=== PATIENT | female | born 1945 | race Caucasian/White ===

== ENCOUNTER 2018-04-24 05:49 | Day surgery (SDC) | payer MEDICARE, SELFPAY ==
[2018-04-04 10:08] VITALS: BMI 34.4
[2018-04-24] VITALS (9 sets, daily range): BP systolic 128–189; BP diastolic 58–86; PULSE 62–86; RESP 14–16; TEMP 35.9–36.1; O2SAT 94–100; BMI 36.5
[2018-04-24 07:00] LABS: Hematocrit 45.9 % (37-47); Hemoglobin 14.5 g/dl (12.0-15.0); Mean Corp Hgb Conc 31.6 g/gl (32-36); Mean Corpuscular Hgb 28.8 pg (27.0-32.0); Mean Corpuscular Volume 91.3 fL (81-99); Mean Platelet Vol. 10.3 fl (6.2-12.0); Platelet Count 255 K/mm3 (150-450); RBC Distribution Width CV 14.2 % (11.6-14.6); RBC Distribution Width SD 46.7 fl (35.1-43.9); Red Blood Count 5.03 M/mm3 (4.2-5.4); White Blood Count 7.1 K/mm3 (4.4-11.0)
[2018-04-24 07:03] LABS: Scan Indicated on CBC? Y/N NO
[2018-04-24 07:06] LABS: ALB/GLOB Ratio 0.7 RATIO (0.9-2.4); AST(SGOT) 18 U/L (15-37); Alanine Aminotransfer ALT/SGPT 18 U/L (13-56); Albumin, Serum 3.3 g/dL (3.2-5.0); Alkaline Phosphatase 124 U/L (45-117); Anion Gap 8 (5-15); BUN 28 mg/dL (7-18); BUN/Creat Ratio 23.1 RATIO (10-20); Calcium,Total 9.8 mg/dL (8.5-10.1); Chloride 103 mmol/L (98-107); Creatinine, Serum 1.21 mg/dL (0.55-1.02); EST Glomerular Filtration Rate 46 mL/min (>60); Est Glom Filt Rate - Afr Amer 56 mL/min (>60); Estimated Creatinine Clearance 39.67 ml/min; Globulin 4.5 g/dL (2.2-4.2); Glucose 199 mg/dL (74-106); Potassium 4.3 mmol/L (3.5-5.1); Protein, Total 7.8 g/dL (6.4-8.2); Sodium Level 141 mmol/L (136-145)
[2018-04-24] MEDS: Cefazolin 2 GM in 0.9% Normal Saline 100 ML IV (07:34)
[2018-04-24 07:49] LABS: Hemoglobin A1c 8.6 % (4.2-6.3)
[2018-04-24] MEDS: Bupiv/Epi 0.5% Mpf 30 ML Vial (08:09)
--- NOTE | 2018-04-24 08:10 | EKG12_ITS ---
Test Reason : PRE-OP Blood Pressure : / mmHG Vent. Rate : 068 BPM Atrial Rate : 068 BPM P-R Int : 202 ms QRS Dur : 144 ms QT Int : 436 ms P-R-T Axes : 012 -70 -10 degrees QTc Int : 463 ms Normal sinus rhythm Right bundle branch block Left anterior fascicular block Bifascicular block Abnormal ECG No previous ECGs available Confirmed by JOHN BENITEZ, CRUZ ([id number]), editor producer VIVIAN ABDI ([id number]) on 04/29/2018 11:29:59 AM Referred By: Kashif Mcghee Confirmed By:CRUZ LOPEZ MD
[2018-04-24] MEDS: Bupivacaine Mpf 0.5% 30 ML VIAL (09:13)
--- NOTE | 2018-04-24 09:26 | PCM.DC.ORTHO ---
Discharge Diet: No Restrictions Discharge Activity: - - do not actively elevate or move shoulder. may come out of sling multiple times/day for elbow and hand range of motion. do not carry push or pull with operative extremity May shower in (days): 2 Ice area for (Minutes): 15 Call your doctor if you observe: Fever of 101 or Higher, Inability to urinate, Inability to have a bowel movement, Shortness of breath, Fainting spells, Increased palpitations (irregular heartbeat), Uncontrolled pain Remove Dressing in (days):: 2 - days Additional Instructions: Keep dressing on for 48 hours then may remove and use Band-Aids as needed. Begin cleaning daily 48 hours after surgery do .not submerge in tub or pool Allergies/Adverse Reactions: Allergies No Known Allergies Allergy (Unverified 04/10/18 13:00) Medications to take at Discharge aspirin 325 mg tablet 325 mg PO DAILY 04/04/18 gabapentin 300 mg capsule 300 mg PO TID 04/04/18 saxagliptin 5 mg tablet 5 mg PO DAILY 04/04/18 Naproxen Sodium [Aleve] 220 mg PO PRN PRN 04/10/18 [place]-3 Fatty Acids/Fish Oil [Fish Oil 1,000 mg Capsule] 1 each PO BID 04/10/18 Hydrocodone/Acetaminophen [[place] 5-325 Tablet] 1 - 2 each PO Q4H PRN PRN #60 tablet 04/24/18 The following prescriptions were given: Hydrocodone/Acetaminophen [[place] 5-325 Tablet] 1 - 2 each PO Q4H PRN PRN #60 tablet PRN Reason: Pain Primary Care Physician: Amado Hallman MD [Primary Care Provider] - Test Results: Test results from this visit will be discussed in further detail at your follow-up appointment, if applicable. Please Follow Up With: Kashif Mcghee DO When: 2 wks Proposed Discharge Date: 04/24/18
--- NOTE | 2018-04-24 09:30 | DCINST_ITS ---
Discharge Diet: No Restrictions Discharge Activity: - - do not actively elevate or move shoulder. may come out of sling multiple times/day for elbow and hand range of motion. do not carry push or pull with operative extremity May shower in (days): 2 Ice area for (Minutes): 15 Call your doctor if you observe: Fever of 101 or Higher, Inability to urinate, Inability to have a bowel movement, Shortness of breath, Fainting spells, Increased palpitations (irregular heartbeat), Uncontrolled pain Remove Dressing in (days):: 2 - days Additional Instructions: Keep dressing on for 48 hours then may remove and use Band-Aids as needed. Begin cleaning daily 48 hours after surgery do .not submerge in tub or pool Allergies/Adverse Reactions: Allergies No Known Allergies Allergy (Unverified 04/10/18 13:00) Medications to take at Discharge aspirin 325 mg tablet 325 mg PO DAILY 04/04/18 gabapentin 300 mg capsule 300 mg PO TID 04/04/18 saxagliptin 5 mg tablet 5 mg PO DAILY 04/04/18 Naproxen Sodium [Aleve] 220 mg PO PRN PRN 04/10/18 [place]-3 Fatty Acids/Fish Oil [Fish Oil 1,000 mg Capsule] 1 each PO BID 04/10/18 Hydrocodone/Acetaminophen [[place] 5-325 Tablet] 1 - 2 each PO Q4H PRN PRN #60 tablet 04/24/18 The following prescriptions were given: Hydrocodone/Acetaminophen [[place] 5-325 Tablet] 1 - 2 each PO Q4H PRN PRN #60 tablet PRN Reason: Pain Primary Care Physician: Amado Hallman MD [Primary Care Provider] - Test Results: Test results from this visit will be discussed in further detail at your follow- up appointment, if applicable. Please Follow Up With: Kashif Mcghee DO When: 2 wks Proposed Discharge Date: 04/24/18
--- NOTE | 2018-04-24 09:46 | OP.PCM_ITS ---
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 Risks benefits and alternatives of the procedure were reviewed including risk of bleeding infection nerve artery tissue damage need for further surgery continue pain postoperative stiffness postoperative rehabilitation that is required and expected postoperative course Procedure the patient was met in the preoperative holding area the operative extremity was identified by both patient and physician and was marked. Patient was met by anesthesia and brought back to the operating room on a wheeled cart and transferred the operating table in the supine position. Anesthesia was started she was then positioned in a beachchair configuration all of her bony prominences were well-padded. She was prepped and draped in the usual sterile fashion and a timeout was called to ensure the proper patient procedure and extremity were being contemplated. Anatomic landmarks were palpated and marked with a marking pen and injected with 0.5% Marcaine with epinephrine in the skin only an 11 blade scalpel was used to make a stab incision in the posterior lateral portal followed by the introduction of the arthroscopic trocar into the glenohumeral space with ease inflow and outflow tubes were attached and arthroscopic visualization began care portal was established with an 18-gauge spinal needle and 11 blade scalpel was used to make a stab incision. A 4 oh shaver was inserted into the joint and debridement of degenerative labral tearing in the posterior superior and anterior region was performed biceps was partially torn greater than 50% and a biceps tenotomy was performed with the use of an ArthroCare wand there was noted to be grade 3 cartilage wear of the glenoid as well as of the humeral head and varying areas. The scope was then repositioned into the subacromial space although a massive rotator cuff tear was appreciated lateral portal was established and a cuff grasper was used to visualize mobilization of the rotator cuff. It was felt the cuff was mobile enough to perform a repair the footprint was debrided with a shaver. And a anterior medial anchor was placed and passed through the cuff edges of the tear were cut to allow individual passes of the fiber tape was repeated for the posterior anchor then in standard beat bridge fashion posterior limbs were secured to a posterior lateral anchor in the anterior limbs to anterior lateral anchor an excellent repair there was no significant anterior acromial spurring and intra-articular injection with 0.25% Marcaine plain and 4 mg of morphine was injected the suture portals were closed with 3-0 nylon arthroscopic knots this dressing was applied in the form of Xeroform 4 x 4 ABD and [place] dressing. An abduction sling was placed patient tolerated the procedure well all counts were correct patient was brought back to the PACU in stable condition in a postoperative interscalene block will be placed patient will follow up in 2 weeks a prescription for [place] was called into her pharmacy
[2018-04-24 11:02] LABS: Bedside Glucose 241 mg/dL (70-110)
== END 2018-04-24 14:53 | disposition home or self-care (01) ==
LOC: SDC 05:50 → AC 05:50
PROVIDERS: Anesthesiology; Family Provider Family Medicine; PCP Family Medicine; Referring Provider Orthopaedic Surgery; Visit Provider Orthopaedic Surgery
PROC: (CPT 29827; principal; 2018-04-24 07:10)
DX: M75.121 Complete rotator cuff tear or rupture of right shoulder, not specified as traumatic (principal); Z85.43 Personal history of malignant neoplasm of ovary; E11.9 Type 2 diabetes mellitus without complications; Z79.899 Other long term (current) drug therapy; Z79.82 Long term (current) use of aspirin; I45.2 Bifascicular block; I10 Essential (primary) hypertension
CPT/HCPCS: 01630; 29827; 64415; 36415; 80053; 82962; 83036; 85027; 93005; J7120; J2405

== ENCOUNTER 2024-12-16 15:00 | Outpatient (RCR) | payer MEDICARE, SELFPAY ==
[2024-12-11 13:24] VITALS: BP 149/93; PULSE 78; RESP 16; TEMP 36.4; BMI 38.9
--- NOTE | 2024-12-11 14:41 | PCM.WC.HP ---
History of Present Illness Date of Service: 12/11/24 Chief Complaint: Bilateral lower extremity ulcerations History of Wound: This is an 79-year-old female who presented with an ulceration in both lower extremities. According to the patient, the ulcerations have been present for a couple of months. It appears as though the ulcerations started as blisters, which subsequently ruptured, leaving a full-thickness ulceration at the site. The patient suffers from chronic swelling and edema in her lower extremities. The swelling and edema in her lower extremities occurs late in each day. She denies history of thrombophlebitis. She claims to sleep on a flat mattress or couch at night. She is not active, and requires the use of a cane or walker for ambulation. The amount of sitting during daytime hours is judged to be significant. The patient claims that compression to her lower extremities has been administered recently by means of Cresencio wraps. The patient lives with family members. She claims to prepare her own meals, though admits that her appetite is poor. 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 [facility] Medical History History of ovarian cancer Venous stasis ulcer Venous stasis ulcer Dependent edema Leg edema Symptom of leg swelling Memory disturbance Impaired mobility Peripheral artery disease Diabetic neuropathy Hyperlipidemia associated with type 2 diabetes mellitus Hypertension Diabetes mellitus type 2 with complications, uncontrolled Stroke Diabetes Home Medications ?Medication ?Instructions ?Recorded ?Last Taken ?Type aspirin 325 mg tablet 325 mg PO DAILY 04/04/18 04/16/18 History gabapentin 300 mg capsule 300 mg PO TID 04/04/18 Unknown History saxagliptin 5 mg tablet (Onglyza) 5 mg PO DAILY diabetes 04/04/18 Unknown History naproxen sodium 220 mg capsule 220 mg PO PRN PRN Pain 04/10/18 Unknown History (Aleve) omega-3 fatty acids-fish oil 340 1 ea PO BID 04/10/18 Unknown History mg-1,000 mg capsule (Fish Oil) hydrocodone-acetaminophen 5-325mg 1 - 2 ea (1 - 2 x 5-325 mg) PO Q4H 04/24/18 Unknown Rx 5mg-325mg ([place]) PRN PRN Pain #60 tabs Allergy/AdvReac Type Severity Reaction Status Date / Time No Known Allergies Allergy Verified 06/03/18 11:07 Family History Mother CVA (cerebral vascular accident) Father Heart disease Surgical History History of hysterectomy h/o gallbladder removal History of shoulder surgery Social History Smoking Status: Never smoker Vital Signs Vital Signs Vital Signs: 12/11/24 13:24 Temperature 97.5 F L Temperature Source Temporal Pulse Rate 78 Respiratory Rate 16 Blood Pressure 149/93 H Blood Pressure Mean 111 Blood Pressure Source Monitor Blood Pressure Position Sitting Blood Pressure Location Right Arm Oxygen Delivery Method Room Air Weight Weight: 249 lb Body Mass Index (BMI) 38.9 Physical Exam Const alert, oriented x3, no apparent distress and no limitations Constitutional Narrative: The patient is moderately obese, with a BMI of 39.0. General Appearance: cooperative, comfortable, well kempt and well developed Orientation / Consciousness: awake, oriented to person, oriented to place and oriented to time Exam Limitations: no limitations HEENT normocephalic and head/scalp atraumatic Head and Scalp: normal to inspection, normocephalic and atraumatic Face and Sinus: normal facial exam Nose: external nose normal External Ear: external ears normal Eyes EOMs intact bilaterally General Eye: normal appearance of both eyes Resp normal respiratory effort, normal air movement, no retractions and no use of accessory muscles Effort and Inspection: able to speak in complete sentences Extremity no calf tenderness General Extremity: Negative for clubbing or cyanosis Skin Wound Narrative: Moderate swelling and edema are noted in the patient's lower extremities bilaterally. There is 1 ulceration in each lower extremity. On the right, the ulceration is located on the distal anterolateral calf. The ulceration is full-thickness in nature, extending through all layers of the dermis and into the subcutaneous tissues. There are areas of pink, healthy granulation tissue, but also slough and devitalized tissue. Ulcer margins are well beveled. Dimensions are documented elsewhere. There is mild erythema surrounding the ulceration. On the left, there is an ulceration on the left mid-pretibial surface. This ulceration is smaller than the contralateral ulceration. The ulceration is full-thickness, extending through all layers of the dermis and into the subcutaneous tissues. Slough and devitalized tissue are present on the surface of the ulceration. Dimensions are documented elsewhere. Ulcer margins are well beveled. Erythema surrounds the ulceration. Neuro oriented x3, CN's II-XII intact bilaterally, moves all extremities, no focal motor deficits and no sensory deficits noted Sensorium / Orientation: awake, alert, oriented to person, oriented to place and oriented to time Speech: speech normal Psych Appearance: grossly normal and appropriate Attitude: calm Activity / Motor Behavior: appropriate eye contact Speech: normal speech Mood & Affect: euthymic mood Thought Process: normal thought process Thought Content: normal thought content Attention / Concentration: attention grossly intact Debridement Note Debridement Note Wound debrided: Ulceration of the right, distal anterolateral calf Laterality: Right Type of Debridement: Excisional debridement Anesthesia Used: 5% Lidocaine Gel and Cetacaine Depth: Down to and including healthy tissue and in the subcutaneous layer Percentage of wound debrided: 100 Instrument Used: 5mm curette Tissue Removed: Slough and devitalized tissue Severity: Fat Layer Exposed Amount of bleeding with debridement: Mild Bleeding Controlled with: Compression and gauze Patient tolerated procedure: Patient tolerated procedure well Debridement Free Text: Because of the erythema surrounding the ulceration, a swab culture was obtained for aerobic and anaerobic bacterial culture. Post-Debridement Measurements and Additional Note: Post-Debridement Measurements/Treatment - Nurse 1 - General Ulcer Assessment Start: 12/11/24 13:18 Freq: Status: Active Protocol: TALYA Activity Type Activity Date Activity User E-sign Co-sign Detail Recorded Client Recorded Date Recorded By Document 12/11/24 13:24 [id number] 12/11/24 13:48 12/11/24 13:24 - Today's Visit Information Type of service Initial Visit Arrival Mode Wheelchair Transfer Assistance Manual Patient Identification Verified (Name & Yes ) Height and Weight Height 5 ft 7 in Weight 249 lb Weight in Pounds 249.0 lbs Body Mass Index (BMI) 38.9 BMI Classification Obese Vital Signs Temperature (97.8 F-99.1 F) 97.5 F L Temperature Source Temporal Pulse Rate (60-100) 78 Pulse Location Monitor Respiratory Rate (12-18) 16 Respiratory rate source Observation Oxygen Delivery Method Room Air Blood Pressure (90/60-120/80) 149/93 H Blood Pressure Mean 111 Source Monitor Position Sitting Blood Pressure Location Right Arm History Since Last Visit- (Skip if this is Patient's initial visit) Left Footwear Regular Shoe Pain Scale: 0-10 Numeric Is Patient Pain Free? Yes Lower Extremity Assessment/ Foot Assessment/ Toe Nail Assessment Right -Posterior Tibial Palpable No -Posterior Tibial Doppler Multiphasic -Dorsalis Pedis Palpable No -Dorsalis Pedis Doppler Multiphasic -Hair Growth on Legs Yes -Hair Growth on Toes No -Temperature of Extremity Warm -Capillary Refill Less than 3 Seconds -Dependent Rubor No -Blanched when Elevated No -Other Deformity No -Prior Foot Ulcer No -Charcot Joint No -Prior Amputation No -Thick No -Discolored No -Deformed No -Improper Length & Hygeine No Left -Posterior Tibial Palpable No -Posterior Tibial Doppler Multiphasic -Dorsalis Pedis Palpable No -Dorsalis Pedis Doppler Multiphasic -Hair Growth on Legs Yes -Hair Growth on Toes No -Temperature of Extremity Warm -Dependent Rubor No -Blanched when Elevated No -Other Deformity No -Prior Foot Ulcer No -Charcot Joint No -Prior Amputation No -Thick No -Discolored No -Deformed No -Improper Length & Hygeine No Functional Assessment Recent Decline in Ability to Perform Transferring Assistive Device With Patient Yes List Device(s) with Patient walker, cane and today she had a wheelchair Culture/Taoism/Registered Nurse Cardiovascular [facility] Cultural/Taoism Needs that may affect No Treatment Plan WC - Nurse 1 - General Ulcer Measurement Start: 12/11/24 13:18 Freq: Status: Active Protocol: Activity Type Activity Date Activity User E-sign Co-sign Detail Recorded Client Recorded Date Recorded By Document 12/11/24 13:24 [id number] 12/11/24 13:48 GM 12/11/24 13:24 Wound Center Nurse 1 Left [place] -Current Size (cm) - Length 1.0 -Current Size (cm) - Width 1.0 -Current Size (cm) - Depth 0.1 -Total Square Cm 1.00 -Date of Last Picture (Recall this 12/11/24 field) -Photo Taken Yes -Tunneling No -Undermining/Tunneling No -Circular Undermining No -Exudate Amt Small -Exudate Type Serous -Wound Margin Distinct, Outline Attached -Slough/Fibrin Yes -Texture (Lyric-wound Skin Appearance) Assessed -Color (Lyric-wound Skin Appearance) Assessed -Temperature (Lyric-wound Skin No Abnormality Appearance) (Pt Warm) -Tenderness on Palpation (Lyric-wound Yes Skin Appearance) -Ulcer Cleansing Soap and Water -Foul Odor after Cleansing No -Anesthetic Used 5% Lidocaine Gel Right longoria -Current Size (cm) - Length 1.0 -Current Size (cm) - Width 1.2 -Current Size (cm) - Depth 0.1 -Total Square Cm 1.20 -Date of Last Picture (Recall this 12/11/24 field) -Photo Taken Yes -Tunneling No -Undermining/Tunneling No -Circular Undermining No -Exudate Amt Medium -Exudate Type Serous -Wound Margin Distinct, Outline Attached -Granulation Amt Small (1-33%) -Slough/Fibrin No -Necrosis Amt Small (1-33%) -Necrotic Tissue Type Adherent Slough -Texture (Lyric-wound Skin Appearance) Assessed -Moisture (Lyric-wound Skin Appearance) Assessed -Color (Lyric-wound Skin Appearance) Assessed -Temperature (Lyric-wound Skin No Abnormality Appearance) (Pt Warm) -Tenderness on Palpation (Lyric-wound No Skin Appearance) -Ulcer Cleansing Soap and Water -Foul Odor after Cleansing Yes -Anesthetic Used 5% Lidocaine Gel Lower Limb Edema Present Yes Right Calf (cm) 51 Right Ankle (cm) 30 Left Calf (cm) 50 Left Ankle (cm) 28 - Nurse 2 - General Ulcer CM Notes Start: 12/11/24 13:18 Freq: Status: Active Protocol: Activity Type Activity Date Activity User E-sign Co-sign Detail Recorded Client Recorded Date Recorded By Document 12/11/24 14:00 [id number] 12/11/24 14:16 12/11/24 14:00 Wound Center Nurse 2 Left [place] -Time 14:05 -Correct Patient Yes -Correct Side, Site, Position Yes -Correct Procedure Yes -Procedure Performed Yes -Type of Procedure Debridement -Clinical Debridement Subcutaneous -Tissue Removed Subcutaneous -Post Debridement (cm) - Length 1.0 -Post Debridement (cm) - Width 1.0 -Post Debridement (cm) - Depth 0.1 -Total Square (Post) (cm) 1.00 -Area of Debridement (cm) - Length 1.0 -Area of Debridement (cm) - Width 1.0 -Total Square (Area) (cm) 1.00 -Tunneling No -Undermining/Tunneling No -Circular Undermining No -Wound/Ulcer Outcome Not Healed -Ulcer Cleansing Rinsed/ Irrigated with Saline -Foul Odor after Cleansing No -Bioengineered Tissue No -Bleeding Controlled with Pressure -Treatment Response Procedure Tolerated Well -Offloading No -Debridement - Subq, 1st 20sq cm No Right longoria -Time 14:05 -Correct Patient Yes -Correct Side, Site, Position Yes -Correct Procedure Yes -Procedure Performed Yes -Type of Procedure Debridement -Clinical Debridement Subcutaneous -Tissue Removed Subcutaneous -Post Debridement (cm) - Length 1.2 -Post Debridement (cm) - Width 1.2 -Post Debridement (cm) - Depth 0.1 -Total Square (Post) (cm) 1.44 -Area of Debridement (cm) - Length 1.2 -Area of Debridement (cm) - Width 1.2 -Total Square (Area) (cm) 1.44 -Tunneling No -Undermining/Tunneling No -Circular Undermining No -Wound/Ulcer Outcome Not Healed -Ulcer Cleansing Rinsed/ Irrigated with Saline -Foul Odor after Cleansing No -Bioengineered Tissue No -Bleeding Controlled with Pressure -Treatment Response Procedure Tolerated Well -Offloading No -Debridement - Subq, 1st 20sq cm Yes Pain Scale: 0-10 Numeric Is Patient Pain Free? Yes Additional Wound Wound debrided: Left pretibial ulceration Laterality: Left Type of Debridement: Excisional debridement Anesthesia Used: 5% Lidocaine Gel and Cetacaine Depth: Down to and including healthy tissue and in the subcutaneous layer Percentage of wound debrided: 100 Instrument Used: 5mm curette Tissue Removed: Slough and devitalized tissue Severity: Fat Layer Exposed Amount of bleeding with debridement: Mild Bleeding Controlled with: Compression and gauze Patient tolerated procedure: Patient tolerated procedure well Charges/Coding Multi Select Codes Visit Charges Office Visit/Consults: 99321 OV L4 New 45 min Integumentary Integumentary CPT Codes: 27346 Shima subq tissue 20 sq cm/< Assessment/Plan Assessment/Plan (1) Venous stasis ulcer: CODE(S): I83.009 - Varicose veins of unspecified lower extremity with ulcer of unspecified site; L97.909 - Non-pressure chronic ulcer of unspecified part of unspecified lower leg with unspecified severity QUALIFIERS: Venous stasis ulcer site: other part of lower leg Varicose vein presence: without varicose veins Laterality: right Non-pressure ulcer stage: with fat layer exposed Qualified Code(s): I87.2 - Venous insufficiency (chronic) (peripheral); L97.812 - Non-pressure chronic ulcer of other part of right lower leg with fat layer exposed (2) Venous stasis ulcer: CODE(S): I83.009 - Varicose veins of unspecified lower extremity with ulcer of unspecified site; L97.909 - Non-pressure chronic ulcer of unspecified part of unspecified lower leg with unspecified severity QUALIFIERS: Venous stasis ulcer site: calf Varicose vein presence: without varicose veins Laterality: left Non-pressure ulcer stage: with fat layer exposed Qualified Code(s): I87.2 - Venous insufficiency (chronic) (peripheral); L97.222 - Non-pressure chronic ulcer of left calf with fat layer exposed (3) Leg edema: CODE(S): R60.0 - Localized edema (4) Symptom of leg swelling: CODE(S): M79.89 - Other specified soft tissue disorders (5) Dependent edema: CODE(S): R60.9 - Edema, unspecified (6) Diabetes mellitus type 2 with complications, uncontrolled: (7) Peripheral artery disease: CODE(S): I73.9 - Peripheral vascular disease, unspecified (8) Impaired mobility: CODE(S): Z74.09 - Other reduced mobility (9) Stroke: CODE(S): I63.9 - Cerebral infarction, unspecified (10) h/o gallbladder removal: (11) History of shoulder surgery: CODE(S): Z98.890 - Other specified postprocedural states (12) Hypertension: CODE(S): I10 - Essential (primary) hypertension (13) Hyperlipidemia associated with type 2 diabetes mellitus: CODE(S): E11.69 - Type 2 diabetes mellitus with other specified complication; E78.5 - Hyperlipidemia, unspecified (14) Diabetic neuropathy: CODE(S): E11.40 - Type 2 diabetes mellitus with diabetic neuropathy, unspecified (15) Memory disturbance: CODE(S): R41.3 - Other amnesia (16) History of ovarian cancer: CODE(S): Z85.43 - Personal history of malignant neoplasm of ovary (17) History of hysterectomy: CODE(S): Z90.710 - Acquired absence of both cervix and uterus PLAN: Plan This is an 79-year-old female who presented with an ulceration on each of her lower extremities. The patient suffers from chronic swelling and edema in her lower extremities bilaterally. Within the last several months, she has developed an ulceration in both lower extremities. According to the patient, the ulcerations began as intact blisters, which subsequently ruptured, leaving ulcerations at each site. The patient claims to sleep on a flat mattress or couch at night. It appears as though she spends long hours each day sitting in idle fashion. She is not very active, requiring a cane or walker for ambulation. She denies a history of thrombophlebitis. She also claims that her appetite is poor. The patient is also noted to be diabetic. The patient's diabetes control appears to be poor, and her last known hemoglobin A1c was on May 27, 2024, with a value of 12.3. A lengthy discussion has been undertaken with the patient and her daughter, at the bedside, regarding conservative treatment measures relative to the swelling and edema in the patient's lower extremities. The patient has been encouraged to continue sleeping on a flat surface at night. She has been encouraged to elevate her lower extremities during daytime hours, as much as possible. It has been explained that elevation should be to heart level, or higher. Prolonged idle sitting has been discouraged. Activity has been encouraged, but it is not likely the patient can enhance her level of activity to any significant degree. We are to implement compression to the lower extremities bilaterally by means of Unna compression wraps. These are to remain in place until the patient's visit early next week. We are to obtain a noninvasive lower extremity arterial study to assess the arterial tree in the lower extremities. The Unna compression wrap applied today was placed with conservative amounts of compression. We will also obtain laboratory studies, which will include a CBC, CMP, and a hemoglobin A1c. The patient has been encouraged to optimize her nutritional intake, and to use nutritional supplements, such as Glucerna, to assure adequate nutritional intake. A dietary consult has been offered, but was declined by the patient and her daughter. The patient has also been encouraged to optimize her diabetic control. We will await the results of the patient's ulcer cultures. Patient is return in 5 to 7 days. Total time: 48 minutes
--- NOTE | 2024-12-12 08:52 | WC ---
PHOTO-RIGHT CAMILO 12/11/24
--- NOTE | 2024-12-12 08:58 | WC ---
PHOTO-LEFT CAMILO 12/09/24
[2024-12-16 14:09] VITALS: BP 162/63; PULSE 77; RESP 18; TEMP 36.1; BMI 38.9
--- NOTE | 2024-12-16 15:31 | ART_ITS ---
Reason For Study Reason For Study: PVD Procedure A bilateral lower extremity continuous wave Doppler with analog waveform analysis,segmental pressures,and ankle brachial indexes without exercise. Left Segmental Pressures Left brachial= 188mmHg. Left posterior tibial artery = >254mmHg. Left dorsalis pedis artery = >254mmHg. Left digit = 111 mmHg. The left posterior tibial artery waveforms are biphasic. The left dorsalis pedis waveforms are biphasic. Right Segmental Pressures Right brachial= 172mmHg. Right calf = >254mmHg. Right posterior tibial artery = 148mmHg. Right dorsalis pedis artery = 176mmHg. Right digit = 126 mmHg. The right posterior tibial artery waveforms are biphasic. The right dorsalis pedis waveforms are biphasic. Indices The right ankle brachial index by the posterior tibial artery is 0.79. The right ankle brachial index by the dorsalis pedis is 0.94. The right digital-brachial index is 0.67. The left ankle brachial index by the posterior tibial artery is N/C. The left ankle brachial index by the dorsalis pedis is N/C. The left digital-brachial index is 0.59. VL/Lower Ext Art Exam w/o Exercis Interpretation Summary Biphasic Doppler waveforms are noted at ankle level bilaterally. Pulse-volume r ecordings appear diminished at ankle and digital levels bilaterally. The resting right ankle-brachial index is minimally diminished. The resting left ankle- brachial index could not be determined due to the non-compressibility of the va sculature at ankle level on the left. The digital-brachial indices are mildly diminished bilaterally. There is evidence of arterial calcification at ankle level on the left. There i s minimal arterial occlusive disease at ankle level on the right. Mild arterial occlusive disease is noted at digital l evel bilaterally. Ordering Physician: Luis Enrique Crawford Referring Physician: Jaleesa Ruiz Performed By: Jose G Walter, RVT
[2024-12-16 17:27] LABS: Hematocrit 48.2 % (37-47); Hemoglobin 15.0 g/dL (12.0-15.0); Mean Corp Hgb Conc 31.1 g/dL (32-36); Mean Corpuscular Volume 92.3 fL (81-99); Mean Platelet Vol. 11.0 fl (6.2-12.0); Platelet Count 362 K/mm3 (150-450); RBC Distribution Width CV 14.2 % (11.6-14.6); RBC Distribution Width SD 47.8 fl (35.1-43.9); Red Blood Count 5.22 M/mm3 (4.2-5.4); White Blood Count 8.0 K/mm3 (4.4-11.0)
[2024-12-16 17:55] LABS: AST(SGOT) 27 U/L (<=31); Alanine Aminotransfer ALT/SGPT 11 U/L (<=34); Albumin, Serum 3.8 g/dL (3.4-4.8); Alkaline Phosphatase 126 U/L (35-104); Anion Gap 12 (5-15); BUN 24 mg/dL (4-19); BUN/Creat Ratio 18.0 RATIO (10-20); Calcium,Total 10.1 mg/dL (7.6-11.0); Carbon Dioxide 26.8 mmol/L (21.0-32.0); Chloride 102 mmol/L (98-108); Estimated Creatinine Clearance 43.10 ml/min (50-250); Globulin 3.8 g/dL (2.2-4.2); Glucose 107 mg/dL (70-99); Potassium 3.9 mmol/L (3.3-5.1)
--- NOTE | 2024-12-17 15:04 | WC ---
PHOTO-RLE 12/16/24
--- NOTE | 2024-12-18 14:51 | HP.PCM_ITS ---
History of Present Illness Date of Service: 12/16/24 Chief Complaint: Bilateral lower extremity ulcerations History of Wound: This is an 79-year-old female who presented with an ulceration in both lower extremities. According to the patient, the ulcerations had been present for a couple of months. It appears as though the ulcerations started as blisters, which subsequently ruptured, leaving a full-thickness ulceration at the site. The patient suffers from chronic swelling and edema in her lower extremities. The swelling and edema in her lower extremities occurs late in each day. She denies history of thrombophlebitis. She claims to sleep on a flat mattress or couch at night. She is not active, and requires the use of a cane or walker for ambulation. The amount of sitting during daytime hours is judged to be significant. The patient indicated that compression to her lower extremities had been administered recently by means of Cresencio wraps. The patient lives with family members. She claims to prepare her own meals, though admits that her appetite is poor. 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 [facility] Medical History History of ovarian cancer Venous stasis ulcer Venous stasis ulcer Dependent edema Leg edema Symptom of leg swelling Memory disturbance Impaired mobility Peripheral artery disease Diabetic neuropathy Hyperlipidemia associated with type 2 diabetes mellitus Hypertension Diabetes mellitus type 2 with complications, uncontrolled Stroke Diabetes Home Medications ?Medication ?Instructions ?Recorded ?Last Taken ?Type aspirin 325 mg tablet 325 mg PO DAILY 04/04/18 History gabapentin 300 mg capsule 300 mg PO TID 04/04/18 Unkno wn History saxagliptin 5 mg tablet (Onglyza) 5 mg PO DAILY diabet es 04/04/18 Unknown History naproxen sodium 220 mg capsule 220 mg PO PRN PRN Pain 04/10/18 Unknown History (Aleve) omega-3 fatty acids-fish oil 340 1 ea PO BID 04/10/18 Unknown History mg-1,000 mg capsule (Fish Oil) hydrocodone-acetaminophen 5-325mg 1 - 2 ea (1 - 2 x 5- 325 mg) PO Q4H 04/24/18 Unknown Rx 5mg-325mg (Rudyard) PRN PRN Pain #60 tabs sulfamethoxazole 800 1 tab PO Q12H Wound Infectio n #20 12/15/24 Unknown Rx mg-trimethoprim 160 mg tablet tabs (Bactrim DS) Allergy/AdvReac Type Severity Reaction Status Date / Time No Known Allergies Allergy Verified 06/03/18 11:07 Family History Mother CVA (cerebral vascular accident) Father Heart disease Surgical History History of hysterectomy h/o gallbladder removal History of shoulder surgery Social History Smoking Status: Never smoker Vital Signs Vital Signs Vital Signs: Weight Weight: 249 lb Body Mass Index (BMI) 38.9 Physical Exam Const alert, oriented x3, no apparent distress and no limitations Constitutional Narrative: The patient is moderately obese, with a BMI of 39.0. General Appearance: cooperative, comfortable, well kempt and well developed Orientation / Consciousness: awake, oriented to person, oriented to place and oriented to time Exam Limitations: no limitations HEENT normocephalic and head/scalp atraumatic Head and Scalp: normal to inspection, normocephalic and atraumatic Face and Sinus: normal facial exam Nose: external nose normal External Ear: external ears normal Eyes EOMs intact bilaterally General Eye: normal appearance of both eyes Resp normal respiratory effort, normal air movement, no retractions and no use of accessory muscles Effort and Inspection: able to speak in complete sentences Extremity no calf tenderness General Extremity: Negative for clubbing or cyanosis Skin Wound Narrative: Moderate swelling and edema are noted in the patient's lower extremities bilaterally. There is 1 ulceration in each lower extremity. On the right, the ulceration is located on the distal anterolateral calf. The ulceration is full- thickness in nature, extending through all layers of the dermis and into the subcutaneous tissues. There are areas of pink, healthy granulation tissue, but also slough and devitalized tissue. Ulcer margins are well beveled. Dimensions are documented elsewhere. There is mild erythema surrounding the ulceration. On the left, there is an ulceration on the left mid-pretibial surface. This ulceration is smaller than the contralateral ulceration. The ulceration is full-thickness, extending through all layers of the dermis and into the subcutaneous tissues. Slough and devitalized tissue are present on the surface of the ulceration. Dimensions are documented elsewhere. Ulcer margins are well beveled. Erythema surrounds the ulceration. Neuro oriented x3, CN's II-XII intact bilaterally, moves all extremities, no focal motor deficits and no sensory deficits noted Sensorium / Orientation: awake, alert, oriented to person, oriented to place and oriented to time Speech: speech normal Psych Appearance: grossly normal and appropriate Attitude: calm Activity / Motor Behavior: appropriate eye contact Speech: normal speech Mood & Affect: euthymic mood Attention / Concentration: attention grossly intact Debridement Note Debridement Note Wound debrided: Ulceration of the right, distal anterolateral calf Laterality: Right Type of Debridement: Excisional debridement Anesthesia Used: 5% Lidocaine Gel and Cetacaine Depth: Down to and including healthy tissue and in the subcutaneous layer Percentage of wound debrided: 100 Instrument Used: 5mm curette Tissue Removed: Slough and devitalized tissue Severity: Fat Layer Exposed Amount of bleeding with debridement: Mild Bleeding Controlled with: Compression and gauze Patient tolerated procedure: Patient tolerated procedure well Post-Debridement Measurements and Additional Note: Post-Debridement Measurements/Treatment - Nurse 1 - General Ulcer Assessment Start: 12/11/24 13:18 Freq: Status: Active Protocol: [email or web address] Activity Type Activity Date Activity User E-sign Co-sign Detail Recorded Client Recorded Date Recorded By Document 12/11/24 13:24 [id number] 12/11/24 13:48 Document 12/16/24 14:09 [id number] 12/16/24 14:13 12/11/24 12/16/24 13:24 14:09 - Today's Visit Information Type of service Initial Visit Follow-up Visit (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 ) Arrival Mode Wheelchair Wheelchair Transfer Assistance Manual Manual Patient Identification Verified (Name & Yes Yes ) Patient Requires Transmission-Based No Precautions Height and Weight Height 5 ft 7 in Weight 249 lb Weight in Pounds 249.0 lbs Body Mass Index (BMI) 38.9 38.9 BMI Classification Obese Obese Vital Signs Temperature (97.8 F-99.1 F) 97.5 F L 97 F L Temperature Source Temporal Temporal Pulse Rate (60-100) 78 77 Pulse Location Monitor Monitor Respiratory Rate (12-18) 16 18 Respiratory rate source Observation Observation Oxygen Delivery Method Room Air Blood Pressure (90/60-120/80) 149/93 H 162/63 H Blood Pressure Mean 111 96 Source Monitor Monitor Position Sitting Sitting Blood Pressure Location Right Arm Left Arm History Since Last Visit- (Skip if this is Patient's initial visit) Have you changed medications since your No last visit? Any new allergies or adverse reactions No Had a fall/change in ADL's that may No increase risk of falls Signs or symptoms of abuse and/or No neglect since last visit Have you been in the hospital since your No last visit? Has dressing in place as prescribed Yes Has compression in place as prescribed Yes Has offloadiing in place as prescribed N/A Experienced any changes in pain level or No management Left Footwear Regular Shoe No Footwear Right Footwear No Footwear Pain Scale: 0-10 Numeric Is Patient Pain Free? Yes Yes Lower Extremity Assessment/ Foot Assessment/ Toe Nail Assessment Right -Posterior Tibial Palpable No -Posterior Tibial Doppler Multiphasic -Dorsalis Pedis Palpable No -Dorsalis Pedis Doppler Multiphasic -Hair Growth on Legs Yes -Hair Growth on Toes No -Temperature of Extremity Warm -Capillary Refill Less than 3 Seconds -Dependent Rubor No -Blanched when Elevated No -Other Deformity No -Prior Foot Ulcer No -Charcot Joint No -Prior Amputation No -Thick No -Discolored No -Deformed No -Improper Length & Hygeine No Left -Posterior Tibial Palpable No -Posterior Tibial Doppler Multiphasic -Dorsalis Pedis Palpable No -Dorsalis Pedis Doppler Multiphasic -Hair Growth on Legs Yes -Hair Growth on Toes No -Temperature of Extremity Warm -Dependent Rubor No -Blanched when Elevated No -Other Deformity No -Prior Foot Ulcer No -Charcot Joint No -Prior Amputation No -Thick No -Discolored No -Deformed No -Improper Length & Hygeine No Functional Assessment Recent Decline in Ability to Perform Transferring Assistive Device With Patient Yes List Device(s) with Patient walker, cane and today she had a wheelchair 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 Cultural/Mormonism Needs that may affect No Treatment Plan WC - Nurse 1 - General Ulcer Measurement Start: 12/11/24 13:18 Freq: Status: Active Protocol: Activity Type Activity Date Activity User E-sign Co-sign Detail Recorded Client Recorded Date Recorded By Document 12/11/24 13:24 [id number] 12/11/24 13:48 Document 09/30/25 14:09 RB [id number] 12/16/24 14:13 RB 12/11/24 12/16/24 13:24 14:09 Wound Center Nurse 1 Left [place] -Combined with other wound No -Current Size (cm) - Length 1.0 0.8 -Current Size (cm) - Width 1.0 0.8 -Current Size (cm) - Depth 0.1 0.1 -Total Square Cm 1.00 0.64 -Date of Last Picture (Recall this 12/11/24 field) -Photo Taken Yes Yes -Tunneling No No -Undermining/Tunneling No No -Circular Undermining No No -Exudate Amt Small Medium -Exudate Type Serous Serosanguineous -Wound Margin Distinct, Distinct, Outline Outline Attached Attached -Granulation Amt Medium (34-66%) -Granulation Quality [place] Pocket -Slough/Fibrin Yes Yes -Necrosis Amt Medium (34-66%) -Necrotic Tissue Type Adherent Slough -Structure Exposed N/A -Texture (Lyric-wound Skin Appearance) Assessed Assessed -Moisture (Lyric-wound Skin Appearance) Assessed -Color (Lyric-wound Skin Appearance) Assessed Assessed -Temperature (Lyric-wound Skin No Abnormality No Abnormality Appearance) (Pt Warm) (Pt Warm) -Tenderness on Palpation (Lyric-wound Yes No Skin Appearance) -Ulcer Cleansing Soap and Water Wound Cleanser -Foul Odor after Cleansing No No -Anesthetic Used 5% Lidocaine 5% Lidocaine Gel Gel Right longoria -Combined with other wound No -Current Size (cm) - Length 1.0 1.5 -Current Size (cm) - Width 1.2 1.5 -Current Size (cm) - Depth 0.1 0.1 -Total Square Cm 1.20 2.25 -Date of Last Picture (Recall this 12/11/24 field) -Photo Taken Yes Yes -Tunneling No No -Undermining/Tunneling No No -Circular Undermining No No -Exudate Amt Medium Medium -Exudate Type Serous Serosanguineous -Wound Margin Distinct, Distinct, Outline Outline Attached Attached -Granulation Amt Small (1-33%) Medium (34-66%) -Granulation Quality Pale -Slough/Fibrin No Yes -Necrosis Amt Small (1-33%) Medium (34-66%) -Necrotic Tissue Type Adherent Slough Adherent Slough -Structure Exposed N/A -Texture (Lyric-wound Skin Appearance) Assessed Assessed, Friable -Moisture (Lyric-wound Skin Appearance) Assessed Assessed -Color (Lyric-wound Skin Appearance) Assessed Assessed -Temperature (Lyric-wound Skin No Abnormality No Abnormality Appearance) (Pt Warm) (Pt Warm) -Tenderness on Palpation (Lyric-wound No No Skin Appearance) -Ulcer Cleansing Soap and Water Wound Cleanser -Foul Odor after Cleansing Yes No -Anesthetic Used 5% Lidocaine 5% Lidocaine Gel Gel Lower Limb Edema Present Yes Yes Right Calf (cm) 51 49.4 Right Ankle (cm) 30 28 Left Calf (cm) 50 49.5 Left Ankle (cm) 28 26.5 WC - Nurse 2 - General Ulcer CM Notes Start: 12/11/24 13:18 Freq: Status: Active Protocol: Activity Type Activity Date Activity User E-sign Co-sign Detail Recorded Client Recorded Date Recorded By Document 12/11/24 14:00 GM [id number] 12/11/24 14:16 GM Document 12/16/24 14:52 DS [id number] 12/16/24 14:59 DS Edit Result 12/16/24 14:52 DS (1) [id number] 12/16/24 16:02 DS (1) Left [place] - Post Debridement (cm) - Length => 0.8 - Post Debridement (cm) - Width => 0.8 - Post Debridement (cm) - Depth => 0.1 - Total Square (Post) (cm) => 0.64 - Area of Debridement (cm) - Length => 0.8 - Area of Debridement (cm) - Width => 0.8 - Total Square (Area) (cm) => 0.64 Right longoria - Post Debridement (cm) - Length => 1.5 - Post Debridement (cm) - Width => 1.5 - Post Debridement (cm) - Depth => 0.1 - Total Square (Post) (cm) => 2.25 - Area of Debridement (cm) - Length => 1.5 - Area of Debridement (cm) - Width => 1.5 - Total Square (Area) (cm) => 2.25 12/11/24 12/16/24 14:00 14:52 Wound Center Nurse 2 Left [place] -Time 14:05 14:52 -Correct Patient Yes Yes -Correct Side, Site, Position Yes Yes -Correct Procedure Yes Yes -Procedure Performed Yes Yes -Type of Procedure Debridement Debridement -Clinical Debridement Subcutaneous Subcutaneous -Tissue Removed Subcutaneous Subcutaneous -Post Debridement (cm) - Length 1.0 0.8 -Post Debridement (cm) - Width 1.0 0.8 -Post Debridement (cm) - Depth 0.1 0.1 -Total Square (Post) (cm) 1.00 0.64 -Area of Debridement (cm) - Length 1.0 0.8 -Area of Debridement (cm) - Width 1.0 0.8 -Total Square (Area) (cm) 1.00 0.64 -Tunneling No No -Undermining/Tunneling No No -Circular Undermining No No -Wound/Ulcer Outcome Not Healed Not Healed -Ulcer Cleansing Rinsed/ Irrigated with Saline -Foul Odor after Cleansing No No -Bioengineered Tissue No No -Bleeding Controlled with Pressure Pressure -Treatment Response Procedure Procedure Tolerated Well Tolerated Well -Offloading No -Debridement - Subq, 1st 20sq cm No Yes Right longoria -Time 14:05 14:52 -Correct Patient Yes Yes -Correct Side, Site, Position Yes Yes -Correct Procedure Yes Yes -Procedure Performed Yes Yes -Type of Procedure Debridement Debridement -Clinical Debridement Subcutaneous Subcutaneous -Tissue Removed Subcutaneous Subcutaneous -Post Debridement (cm) - Length 1.2 1.5 -Post Debridement (cm) - Width 1.2 1.5 -Post Debridement (cm) - Depth 0.1 0.1 -Total Square (Post) (cm) 1.44 2.25 -Area of Debridement (cm) - Length 1.2 1.5 -Area of Debridement (cm) - Width 1.2 1.5 -Total Square (Area) (cm) 1.44 2.25 -Tunneling No No -Undermining/Tunneling No No -Circular Undermining No No -Wound/Ulcer Outcome Not Healed Not Healed -Ulcer Cleansing Rinsed/ Irrigated with Saline -Foul Odor after Cleansing No -Bioengineered Tissue No -Bleeding Controlled with Pressure -Treatment Response Procedure Tolerated Well -Offloading No -Debridement - Subq, 1st 20sq cm Yes No Pain Scale: 0-10 Numeric Is Patient Pain Free? Yes Yes WC - Nurse 3 - General Ulcer D/C NN Start: 12/11/24 13:18 Freq: Status: Active Protocol: Activity Type Activity Date Activity User E-sign Co-sign Detail Recorded Client Recorded Date Recorded By Document 12/11/24 14:21 [id number] 12/11/24 14:51 Document 12/16/24 15:05 RB [id number] 12/16/24 15:07 RB 12/11/24 12/16/24 14:21 15:05 Wound Care Center Nurse 3 Left [place] -Ulcer Cleansing Not Cleansed -Foul Odor after Cleansing No -Other Dressing hydrogel -Primary Dressing Covered/Secured with Dry Gauze & Roll Gauze, Other -Other Covering hydrogel -Wound Comment(s) unna boots Right longoria -Ulcer Cleansing Not Cleansed -Foul Odor after Cleansing No -Other Dressing hydrogel -Primary Dressing Covered/Secured with Dry Gauze & Roll Gauze, Secured with Tape -Wound Comment(s) unna boots Treatment Response Procedure Tolerated Well Pain Scale: 0-10 Numeric Is Patient Pain Free? Yes Yes WC - Visit Discharge Discharge Condition Stable Stable Ambulatory Status Wheelchair Wheelchair Transportation Private Auto Private Auto Medication Reconcilliation completed & No provided to patient/care provider Clinical Summary of Care Provided Yes Additional Wound Wound debrided: Left pretibial ulceration Laterality: Left Type of Debridement: Excisional debridement Anesthesia Used: 5% Lidocaine Gel and Cetacaine Depth: Down to and including healthy tissue and in the subcutaneous layer Percentage of wound debrided: 100 Instrument Used: 5mm curette Tissue Removed: Slough and devitalized tissue Severity: Fat Layer Exposed Amount of bleeding with debridement: Mild Bleeding Controlled with: Compression and gauze Patient tolerated procedure: Patient tolerated procedure well Lab / Micro Data Attestation: I reviewed the patient's lab results. Lab results narrative: Laboratory Tests 12/16/24 16:19 WBC 8.0 Hgb 15.0 Hct 48.2 H Plt Count 362 Sodium 140 Potassium 3.9 Chloride 102 Carbon Dioxide 26.8 BUN 24 H Creatinine 1.35 H Glucose 107 H Hemoglobin A1c 9.7 H Calcium 10.1 Total Bilirubin 0.91 AST 27 ALT 11 Alkaline Phosphatase 126 H Total Protein 7.6 Albumin 3.8 12/16/24 16:19 12/16/24 16:19 Charges/Coding Multi Select Codes Visit Charges Office Visit/Consults: 47283 OV L2 Est 10min Integumentary Integumentary CPT Codes: 60077 Shima subq tissue 20 sq cm/< Assessment/Plan Assessment/Plan (1) Venous stasis ulcer: CODE(S): I83.009 - Varicose veins of unspecified lower extremity with ulcer of unspecified site; L97.909 - Non-pressure chronic ulcer of unspecified part of unspecified lower leg with unspecified severity QUALIFIERS: Venous stasis ulcer site: other part of lower leg V aricose vein presence: without varicose veins Laterality: right Non-pressure ulcer stage: with fat layer exposed Qualified Code(s): I87.2 - Venous insufficiency (chronic) (peripheral); L97.812 - Non-pressure chronic ulcer of other part of right lower leg with fat layer exposed (2) Venous stasis ulcer: CODE(S): I83.009 - Varicose veins of unspecified lower extremity with ulcer of unspecified site; L97.909 - Non-pressure chronic ulcer of unspecified part of unspecified lower leg with unspecified severity QUALIFIERS: Venous stasis ulcer site: calf Varicose vein presence: without varicose veins Laterality: left Non-pressure ulcer stage: w ith fat layer exposed Qualified Code(s): I87.2 - Venous insufficiency (chronic) (peripheral); L97.222 - Non-pressure chronic ulcer of left calf with fat layer exposed (3) Leg edema: CODE(S): R60.0 - Localized edema (4) Symptom of leg swelling: CODE(S): M79.89 - Other specified soft tissue disorders (5) Dependent edema: CODE(S): R60.9 - Edema, unspecified (6) Diabetes mellitus type 2 with complications, uncontrolled: (7) Peripheral artery disease: CODE(S): I73.9 - Peripheral vascular disease, unspecified (8) Impaired mobility: CODE(S): Z74.09 - Other reduced mobility (9) Stroke: CODE(S): I63.9 - Cerebral infarction, unspecified (10) h/o gallbladder removal: (11) History of shoulder surgery: CODE(S): Z98.890 - Other specified postprocedural states (12) Hypertension: CODE(S): I10 - Essential (primary) hypertension (13) Hyperlipidemia associated with type 2 diabetes mellitus: CODE(S): E11.69 - Type 2 diabetes mellitus with other specified complication; E78.5 - Hyperlipidemia, unspecified (14) Diabetic neuropathy: CODE(S): E11.40 - Type 2 diabetes mellitus with diabetic neuropathy, unspecified (15) Memory disturbance: CODE(S): R41.3 - Other amnesia (16) History of ovarian cancer: CODE(S): Z85.43 - Personal history of malignant neoplasm of ovary (17) History of hysterectomy: CODE(S): Z90.710 - Acquired absence of both cervix and uterus PLAN: Plan This is an 79-year-old female who presented with an ulceration on each of her lower extremities. The patient suffers from chronic swelling and edema in her lower extremities bilaterally. Within the last several months, she has developed an ulceration in both lower extremities. According to the patient, the ulcerations began as intact blisters, which subsequently ruptured, leaving ulcerations at each site. The patient claims to sleep on a flat mattress or couch at night. It appears as though she spends long hours each day sitting in idle fashion. She is not very active, requiring a cane or walker for ambulation. She denies a history of thrombophlebitis. She also claims that her appetite is poor. The patient is also noted to be diabetic. The patient's diabetes control appears to be poor. A lengthy discussion has been undertaken with the patient and her daughter regarding conservative treatment measures relative to the swelling and edema in the patient's lower extremities. The patient has been encouraged to continue sleeping on a flat surface at night. She has been encouraged to elevate her lower extremities during daytime hours, as much as possible. It has been explained that elevation should be to heart level, or higher. Prolonged idle sitting has been discouraged. Activity has been encouraged, but it is not likely the patient can enhance her level of activity to any significant degree. We are to continue compression to the lower extremities bilaterally by means of Unna compression wraps. These are to be changed twice weekly. A noninvasive lower extremity arterial study has been performed, revealing minimal arterial occlusive disease at ankle level on the right. Mild arterial occlusive disease is noted at digital level bilaterally. Laboratory studies have also been obtained, and results have been reviewed. The patient has been encouraged to optimize her nutritional intake, and to use nutritional supplements, such as Glucerna, to assure adequate nutritional intake. A dietary consult has been offered, but was declined by the patient and her daughter. The patient has also been encouraged to optimize her diabetic control. Wound culture results from December 11, 2024, were positive for Staphylococcus aureus. In accordance with the sensitivity results, the patient has been started on Bactrim double strength twice daily for a total of 10 days. The patient is to return for reevaluation in 1 week. Total time: 26 minutes
== END 2024-12-16 23:59 | disposition home or self-care (01) ==
LOC: WC 15:00
PROVIDERS: PCP Nurse Practitioner Primary Care; Referring Provider Nurse Practitioner Primary Care; Visit Provider Surgery
DX: I83.012 Varicose veins of right lower extremity with ulcer of calf (principal); L97.222 Non-pressure chronic ulcer of left calf with fat layer exposed; L97.212 Non-pressure chronic ulcer of right calf with fat layer exposed; I83.022 Varicose veins of left lower extremity with ulcer of calf; L97.822 Non-pressure chronic ulcer of other part of left lower leg with fat layer exposed; E11.51 Type 2 diabetes mellitus with diabetic peripheral angiopathy without gangrene; E11.40 Type 2 diabetes mellitus with diabetic neuropathy, unspecified; E11.59 Type 2 diabetes mellitus with other circulatory complications; Z79.82 Long term (current) use of aspirin; I10 Essential (primary) hypertension; E78.5 Hyperlipidemia, unspecified; R60.0 Localized edema; I87.2 Venous insufficiency (chronic) (peripheral); Z79.899 Other long term (current) drug therapy
CPT/HCPCS: 11042; 36415; 80053; 83036; 84155; 85027; 87070; 87075; 87077; 87186; 87205; 93923; 99204; G0463

== ENCOUNTER 2025-01-06 14:00 | Outpatient (RCR) | payer MEDICARE, SELFPAY ==
[2024-12-17 14:06] VITALS: BP 144/84; PULSE 76; RESP 18; TEMP 36.6
[2024-12-23 13:39] VITALS: BP 142/70; PULSE 79; RESP 14; TEMP 35.8
--- NOTE | 2024-12-24 13:58 | WC ---
PHOTO-RLE 12/23/24
--- NOTE | 2024-12-24 13:59 | WC ---
PHOTO-LLE 12/23/24
[2024-12-26 12:46] VITALS: BP 140/76; PULSE 79; RESP 18; TEMP 35.8
--- NOTE | 2024-12-26 13:15 | PCM.WC.HP ---
History of Present Illness Date of Service: 12/23/24 Chief Complaint: Bilateral lower extremity ulcerations History of Wound: This is an 79-year-old female who presented with an ulceration in both lower extremities. According to the patient, the ulcerations had been present for a couple of months. It appears as though the ulcerations started as blisters, which subsequently ruptured, leaving a full-thickness ulceration at the site. The patient suffers from chronic swelling and edema in her lower extremities. The swelling and edema in her lower extremities occurs late in each day. She denies a history of thrombophlebitis. She claims to sleep on a flat mattress or couch at night. She is not active, and requires the use of a cane or walker for ambulation. The amount of sitting during daytime hours is judged to be significant. The patient indicated that compression to her lower extremities had been administered recently by means of Cresencio wraps. The patient lives with family members. She claims to prepare her own meals, though admits that her appetite is poor. 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 [facility] Medical History History of ovarian cancer Venous stasis ulcer Venous stasis ulcer Dependent edema Leg edema Symptom of leg swelling Memory disturbance Impaired mobility Peripheral artery disease Diabetic neuropathy Hyperlipidemia associated with type 2 diabetes mellitus Hypertension Diabetes mellitus type 2 with complications, uncontrolled Stroke Diabetes Home Medications ?Medication ?Instructions ?Recorded ?Last Taken ?Type aspirin 325 mg tablet 325 mg PO DAILY 04/04/18 04/16/18 History gabapentin 300 mg capsule 300 mg PO TID 04/04/18 Unknown History saxagliptin 5 mg tablet (Onglyza) 5 mg PO DAILY diabetes 04/04/18 Unknown History naproxen sodium 220 mg capsule 220 mg PO PRN PRN Pain 04/10/18 Unknown History (Aleve) omega-3 fatty acids-fish oil 340 1 ea PO BID 04/10/18 Unknown History mg-1,000 mg capsule (Fish Oil) hydrocodone-acetaminophen 5-325mg 1 - 2 ea (1 - 2 x 5-325 mg) PO Q4H 04/24/18 Unknown Rx 5mg-325mg (Bixby) PRN PRN Pain #60 tabs sulfamethoxazole 800 1 tab PO Q12H Wound Infection #20 12/15/24 Unknown Rx mg-trimethoprim 160 mg tablet tabs (Bactrim DS) Allergy/AdvReac Type Severity Reaction Status Date / Time No Known Allergies Allergy Verified 06/03/18 11:07 Family History Mother CVA (cerebral vascular accident) Father Heart disease Surgical History History of hysterectomy h/o gallbladder removal History of shoulder surgery Social History Smoking Status: Never smoker Vital Signs Vital Signs Vital Signs: 12/26/24 12:46 Temperature 96.4 F L Temperature Source Temporal Pulse Rate 79 Respiratory Rate 18 Blood Pressure 142/70 H Blood Pressure Mean 94 Blood Pressure Source Monitor Blood Pressure Position Semi-Fowlers Blood Pressure Location Left Arm Physical Exam Const alert, oriented x3, no apparent distress and no limitations Constitutional Narrative: The patient is moderately obese, with a BMI of 39.0. General Appearance: cooperative, comfortable, well kempt and well developed Orientation / Consciousness: awake, oriented to person, oriented to place and oriented to time Exam Limitations: no limitations HEENT normocephalic and head/scalp atraumatic Head and Scalp: normal to inspection, normocephalic and atraumatic Face and Sinus: normal facial exam Nose: external nose normal External Ear: external ears normal Eyes EOMs intact bilaterally General Eye: normal appearance of both eyes Resp normal respiratory effort, normal air movement, no retractions and no use of accessory muscles Effort and Inspection: able to speak in complete sentences Extremity no calf tenderness General Extremity: Negative for clubbing or cyanosis Skin Wound Narrative: Moderate swelling and pitting edema are noted in the patient's lower extremities bilaterally. On the right, an ulceration is located on the distal anterolateral calf. The ulceration is full-thickness in nature, extending through all layers of the dermis and into the subcutaneous tissues. There are areas of pink, healthy granulation tissue, but also slough and devitalized tissue. Ulcer margins are well beveled. Dimensions are documented elsewhere. There is mild erythema surrounding the ulceration. On the left, the ulceration previously noted on the left pretibial surface is now healed and epithelialized. Neuro oriented x3, CN's II-XII intact bilaterally, moves all extremities, no focal motor deficits and no sensory deficits noted Sensorium / Orientation: awake, alert, oriented to person, oriented to place and oriented to time Speech: speech normal Psych Appearance: grossly normal and appropriate Attitude: calm Activity / Motor Behavior: appropriate eye contact Speech: normal speech Mood & Affect: euthymic mood Attention / Concentration: attention grossly intact Debridement Note Debridement Note Wound debrided: Ulceration of the right, distal anterolateral calf Laterality: Right Type of Debridement: Excisional debridement Anesthesia Used: 5% Lidocaine Gel Depth: Down to and including healthy tissue and in the subcutaneous layer Percentage of wound debrided: 100 Instrument Used: 5mm curette Tissue Removed: Slough and devitalized tissue Severity: Fat Layer Exposed Amount of bleeding with debridement: Mild Bleeding Controlled with: Compression and gauze Patient tolerated procedure: Patient tolerated procedure well Post-Debridement Measurements and Additional Note: Post-Debridement Measurements/Treatment - Nurse 1 - General Ulcer Assessment Start: 12/17/24 14:05 Freq: Status: Active Protocol: TALYA Activity Type Activity Date Activity User E-sign Co-sign Detail Recorded Client Recorded Date Recorded By Document 12/17/24 14:06 MT [id number] 12/17/24 14:40 MT Document 12/23/24 13:39 ML [id number] 12/23/24 13:43 ML Document 12/26/24 12:46 RB [id number] 12/26/24 12:48 RB 12/17/24 12/23/24 12/26/24 14:06 13:39 12:46 - Today's Visit Information Type of service Nurse-only Follow-up Visit Nurse-only Visit (Physician/SIGNAL MAINTENANCE TECHNICIAN Visit ) Arrival Mode Ambulatory Wheelchair Wheelchair Transfer Assistance None Manual Accompanied by daughter Patient Identification Verified (Name & Yes Yes Yes ) Patient Requires Transmission-Based No No Precautions Safety Precautions Fall Prevention Vital Signs Temperature (97.8 F-99.1 F) 98 F 96.4 F L 96.4 F L Temperature Source Temporal Temporal Temporal Pulse Rate (60-100) 76 79 79 Pulse Location Monitor Monitor Monitor Respiratory Rate (12-18) 18 14 18 Respiratory rate source Observation Observation Observation Oxygen Delivery Method Room Air Blood Pressure (90/60-120/80) 144/84 H 142/70 H 142/70 H Blood Pressure Mean 104 94 94 Source Monitor Monitor Monitor Position Sitting Sitting Semi-Fowlers Blood Pressure Location Right Arm Right Arm Left Arm History Since Last Visit- (Skip if this is Patient's initial visit) Have you changed medications since your No No last visit? Any new allergies or adverse reactions No No Had a fall/change in ADL's that may No No increase risk of falls Signs or symptoms of abuse and/or No No neglect since last visit Have you been in the hospital since your No No last visit? Has dressing in place as prescribed Yes Yes Yes Has compression in place as prescribed Yes N/A Yes Has offloadiing in place as prescribed Yes N/A N/A Experienced any changes in pain level or Yes No No management Left Footwear Regular Shoe Right Footwear Regular Shoe Pain Scale: 0-10 Numeric Is Patient Pain Free? Yes Yes Yes WC - Nurse 1 - General Ulcer Measurement Start: 12/17/24 14:05 Freq: Status: Active Protocol: Activity Type Activity Date Activity User E-sign Co-sign Detail Recorded Client Recorded Date Recorded By Document 12/23/24 13:39 ML [id number] 12/23/24 13:43 ML Document 12/26/24 12:46 RB [id number] 12/26/24 12:48 RB 12/23/24 12/26/24 13:39 12:46 Wound Center Nurse 1 Left Longoria -Current Size (cm) - Length 0.1 -Current Size (cm) - Width 0.1 -Current Size (cm) - Depth 0.1 -Total Square Cm 0.01 -Exudate Amt None Present -Granulation Amt None Present (0 %) -Slough/Fibrin No -Necrosis Amt None Present (0 %) -Texture (Lyric-wound Skin Appearance) Assessed -Moisture (Lyric-wound Skin Appearance) Assessed -Color (Lyric-wound Skin Appearance) Assessed -Temperature (Lyric-wound Skin No Abnormality Appearance) (Pt Warm) -Tenderness on Palpation (Lyric-wound No Skin Appearance) -Ulcer Cleansing Rinsed/ Irrigated with Saline -Foul Odor after Cleansing No -Anesthetic Used 5% Lidocaine Gel Right longoria -Current Size (cm) - Length 0.1 -Current Size (cm) - Width 0.1 -Current Size (cm) - Depth 0.1 -Total Square Cm 0.01 -Slough/Fibrin No -Necrosis Amt None Present (0 %) -Texture (Lyric-wound Skin Appearance) Assessed -Moisture (Lyric-wound Skin Appearance) Assessed -Color (Lyric-wound Skin Appearance) Assessed -Temperature (Lyric-wound Skin No Abnormality Appearance) (Pt Warm) -Tenderness on Palpation (Lyric-wound No Skin Appearance) -Ulcer Cleansing Rinsed/ Irrigated with Saline -Foul Odor after Cleansing No -Anesthetic Used 5% Lidocaine Gel Lower Limb Edema Present Yes Right Calf (cm) 46 48 Right Ankle (cm) 32 28.6 Left Calf (cm) 43 48 Left Ankle (cm) 28 28 - Nurse 2 - General Ulcer CM Notes Start: 12/17/24 14:05 Freq: Status: Active Protocol: Activity Type Activity Date Activity User E-sign Co-sign Detail Recorded Client Recorded Date Recorded By Document 12/23/24 14:01 SOCRATES [id number] 12/23/24 14:04 SOCRATES 12/23/24 14:01 Wound Center Nurse 2 Left Longoria -Correct Patient Yes -Correct Side, Site, Position No -Correct Procedure No -Procedure Performed No -Post Debridement (cm) - Length 0 -Post Debridement (cm) - Width 0 -Post Debridement (cm) - Depth 0 -Total Square (Post) (cm) 0 -Area of Debridement (cm) - Length 0 -Area of Debridement (cm) - Width 0 -Total Square (Area) (cm) 0 -Wound/Ulcer Outcome Healed- Epithelialized Right longoria -Time 14:02 -Correct Patient Yes -Correct Side, Site, Position Yes -Correct Procedure Yes -Procedure Performed Yes -Type of Procedure Debridement -Clinical Debridement Subcutaneous -Tissue Removed Subcutaneous -Post Debridement (cm) - Length 0.8 -Post Debridement (cm) - Width 1.2 -Post Debridement (cm) - Depth 0.1 -Total Square (Post) (cm) 0.96 -Area of Debridement (cm) - Length 0.8 -Area of Debridement (cm) - Width 1.2 -Total Square (Area) (cm) 0.96 -Tunneling No -Undermining/Tunneling No -Circular Undermining No -Wound/Ulcer Outcome Not Healed -Ulcer Cleansing Rinsed/ Irrigated with Saline -Foul Odor after Cleansing No -Bioengineered Tissue No -Bleeding Controlled with Pressure -Treatment Response Procedure Tolerated Well -Offloading No -Debridement - Subq, 1st 20sq cm Yes Pain Scale: 0-10 Numeric Is Patient Pain Free? Yes WC - Nurse 3 - General Ulcer D/C NN Start: 12/17/24 14:05 Freq: Status: Active Protocol: Activity Type Activity Date Activity User E-sign Co-sign Detail Recorded Client Recorded Date Recorded By Document 12/17/24 14:06 MT [id number] 12/17/24 14:40 MT Document 12/26/24 12:46 RB [id number] 12/26/24 12:48 RB 12/17/24 12/26/24 14:06 12:46 Pain Scale: 0-10 Numeric Is Patient Pain Free? Yes Yes Wound Care Center Nurse 3 Left Longoria -Ulcer Cleansing Soap and Water -Foul Odor after Cleansing No -Negative Pressure Wound Therapy N/A -Primary Dressing Covered/Secured with Dry Gauze,Dry Gauze & Roll Gauze -Other Covering hydrogel Right longoria -Ulcer Cleansing Soap and Water Rinsed/ Irrigated with Saline -Foul Odor after Cleansing No -Negative Pressure Wound Therapy N/A -Primary Dressing Applied Aquacel AG 2x2 -Other Dressing hydrogel -Primary Dressing Covered/Secured with Dry Gauze,Dry Gauze & Roll Gauze -Aquacel AG 2x2 1 BLE -Multi-Layered Wrap Application Unna Boot - Multi-Layer Bilateral Comp - Bilat ($ ) -Unna- Bilat (Qty applied) 1 -Multi-Layer Compression Bilat (Qty 1 applied) Treatment Response Procedure Procedure Tolerated Well Tolerated Well WC - Visit Discharge Discharge Condition Stable Ambulatory Status Ambulatory Wheelchair Transportation Private Auto Private Auto Accompanied by DAUGHTER Medication Reconcilliation completed & No No provided to patient/care provider Clinical Summary of Care Provided Yes Yes Notes: pt understood wound dressing Charges/Coding Procedures Integumentary [id number]: [id number] Shima subq tissue 20 sq cm/< Assessment/Plan Assessment/Plan (1) Venous stasis ulcer: CODE(S): I83.009 - Varicose veins of unspecified lower extremity with ulcer of unspecified site; L97.909 - Non-pressure chronic ulcer of unspecified part of unspecified lower leg with unspecified severity QUALIFIERS: Venous stasis ulcer site: other part of lower leg Varicose vein presence: without varicose veins Laterality: right Non-pressure ulcer stage: with fat layer exposed Qualified Code(s): I87.2 - Venous insufficiency (chronic) (peripheral); L97.812 - Non-pressure chronic ulcer of other part of right lower leg with fat layer exposed (2) Venous stasis ulcer: CODE(S): I83.009 - Varicose veins of unspecified lower extremity with ulcer of unspecified site; L97.909 - Non-pressure chronic ulcer of unspecified part of unspecified lower leg with unspecified severity QUALIFIERS: Venous stasis ulcer site: calf Varicose vein presence: without varicose veins Laterality: left Non-pressure ulcer stage: with fat layer exposed Qualified Code(s): I87.2 - Venous insufficiency (chronic) (peripheral); L97.222 - Non-pressure chronic ulcer of left calf with fat layer exposed (3) Leg edema: CODE(S): R60.0 - Localized edema (4) Symptom of leg swelling: CODE(S): M79.89 - Other specified soft tissue disorders (5) Dependent edema: CODE(S): R60.9 - Edema, unspecified (6) Diabetes mellitus type 2 with complications, uncontrolled: (7) Peripheral artery disease: CODE(S): I73.9 - Peripheral vascular disease, unspecified (8) Impaired mobility: CODE(S): Z74.09 - Other reduced mobility (9) Stroke: CODE(S): I63.9 - Cerebral infarction, unspecified (10) h/o gallbladder removal: (11) History of shoulder surgery: CODE(S): Z98.890 - Other specified postprocedural states (12) Hypertension: CODE(S): I10 - Essential (primary) hypertension (13) Hyperlipidemia associated with type 2 diabetes mellitus: CODE(S): E11.69 - Type 2 diabetes mellitus with other specified complication; E78.5 - Hyperlipidemia, unspecified (14) Diabetic neuropathy: CODE(S): E11.40 - Type 2 diabetes mellitus with diabetic neuropathy, unspecified (15) Memory disturbance: CODE(S): R41.3 - Other amnesia (16) History of ovarian cancer: CODE(S): Z85.43 - Personal history of malignant neoplasm of ovary (17) History of hysterectomy: CODE(S): Z90.710 - Acquired absence of both cervix and uterus PLAN: Plan This is an 79-year-old female who presented with an ulceration on each of her lower extremities. The patient suffers from chronic swelling and edema in her lower extremities bilaterally. Within the last several months, she has developed an ulceration in both lower extremities. According to the patient, the ulcerations began as intact blisters, which subsequently ruptured, leaving ulcerations at each site. The patient claims to sleep on a flat mattress or couch at night. It appears as though she spends long hours each day sitting in idle fashion. She is not very active, requiring a cane or walker for ambulation. She denies a history of thrombophlebitis. She also claims that her appetite is poor. The patient is also noted to be diabetic. The patient's diabetes control appears to be poor. A lengthy discussion has been undertaken with the patient and her daughter regarding conservative treatment measures relative to the swelling and edema in the patient's lower extremities. The patient has been encouraged to continue sleeping on a flat surface at night. She has been encouraged to elevate her lower extremities during daytime hours, as much as possible. It has been explained that elevation should be to heart level, or higher. Prolonged idle sitting has been discouraged. Activity has been encouraged, but it is not likely the patient can enhance her level of activity to any significant degree. We are to implement the use of moistened Aquacel Ag topically to the ulceration of the right lower extremity. For compression, a 3M 2 layer compression wrap is to be applied bilaterally, in anticipation that this will be changed twice weekly. A noninvasive lower extremity arterial study has been performed, revealing minimal arterial occlusive disease at ankle level on the right. Mild arterial occlusive disease is noted at digital level bilaterally. Laboratory studies have also been obtained, and results have been reviewed. The patient has been encouraged to optimize her nutritional intake, and to use nutritional supplements, such as Glucerna, to assure adequate nutritional intake. A dietary consult has been offered, but was declined by the patient and her daughter. The patient has also been encouraged to optimize her diabetic control. Wound culture results from December 11, 2024, were positive for Staphylococcus aureus. In accordance with the sensitivity results, the patient was prescribed Bactrim double strength twice daily for a total of 10 days. The patient's lower extremity circumference measurements are to be forwarded to her DME provider in an attempt to procure CircAid Velcro compression garments for the lower extremities for use on a long-term basis. The patient is to return for reevaluation in 1 week. Total time: 25 minutes
[2024-12-30 13:09] VITALS: BP 150/89; PULSE 71; RESP 16; TEMP 35.7
--- NOTE | 2025-01-01 15:11 | PCM.WC.HP ---
History of Present Illness Date of Service: 12/30/24 Chief Complaint: Bilateral lower extremity ulcerations History of Wound: This is an 79-year-old female who presented with an ulceration in both lower extremities. According to the patient, the ulcerations had been present for a couple of months. It appears as though the ulcerations started as blisters, which subsequently ruptured, leaving a full-thickness ulceration at the site. The patient suffers from chronic swelling and edema in her lower extremities. The swelling and edema in her lower extremities occurs late in each day. She denies a history of thrombophlebitis. She claims to sleep on a flat mattress or couch at night. She is not active, and requires the use of a cane or walker for ambulation. The amount of sitting during daytime hours is judged to be significant. The patient indicated that compression to her lower extremities had been administered recently by means of Cresencio wraps. The patient lives with family members. She claims to prepare her own meals, though admits that her appetite is poor. 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 [facility]LY [facility] Medical History History of ovarian cancer Venous stasis ulcer Venous stasis ulcer Dependent edema Leg edema Symptom of leg swelling Memory disturbance Impaired mobility Peripheral artery disease Diabetic neuropathy Hyperlipidemia associated with type 2 diabetes mellitus Hypertension Diabetes mellitus type 2 with complications, uncontrolled Stroke Diabetes Home Medications ?Medication ?Instructions ?Recorded ?Last Taken ?Type aspirin 325 mg tablet 325 mg PO DAILY 04/04/18 04/16/18 History gabapentin 300 mg capsule 300 mg PO TID 04/04/18 Unknown History saxagliptin 5 mg tablet (Onglyza) 5 mg PO DAILY diabetes 04/04/18 Unknown History naproxen sodium 220 mg capsule 220 mg PO PRN PRN Pain 04/10/18 Unknown History (Aleve) omega-3 fatty acids-fish oil 340 1 ea PO BID 04/10/18 Unknown History mg-1,000 mg capsule (Fish Oil) hydrocodone-acetaminophen 5-325mg 1 - 2 ea (1 - 2 x 5-325 mg) PO Q4H 04/24/18 Unknown Rx 5mg-325mg ([facility]) PRN PRN Pain #60 tabs sulfamethoxazole 800 1 tab PO Q12H Wound Infection #20 12/15/24 Unknown Rx mg-trimethoprim 160 mg tablet tabs (Bactrim DS) Allergy/AdvReac Type Severity Reaction Status Date / Time No Known Allergies Allergy Verified 06/03/18 11:07 Family History Mother CVA (cerebral vascular accident) Father Heart disease Surgical History History of hysterectomy h/o gallbladder removal History of shoulder surgery Social History Smoking Status: Never smoker Physical Exam Const alert, oriented x3, no apparent distress and no limitations Constitutional Narrative: The patient is moderately obese, with a BMI of 39.0. General Appearance: cooperative, comfortable, well kempt and well developed Orientation / Consciousness: awake, oriented to person, oriented to place and oriented to time Exam Limitations: no limitations HEENT normocephalic and head/scalp atraumatic Head and Scalp: normal to inspection, normocephalic and atraumatic Face and Sinus: normal facial exam Nose: external nose normal External Ear: external ears normal Eyes EOMs intact bilaterally General Eye: normal appearance of both eyes Resp normal respiratory effort, normal air movement, no retractions and no use of accessory muscles Effort and Inspection: able to speak in complete sentences Extremity no calf tenderness General Extremity: Negative for clubbing or cyanosis Skin Wound Narrative: Moderate swelling and pitting edema are noted in the patient's lower extremities bilaterally. On the right, an ulceration is located on the distal anterolateral calf. The ulceration is full-thickness in nature, extending through all layers of the dermis and into the subcutaneous tissues. It is generally pink and healthy in appearance, with active granulation tissue. There is a small amount of bioburden. Ulcer margins are well beveled. Dimensions are documented elsewhere. The ulceration has decreased in size. On the left, the ulceration previously noted on the left pretibial surface remains healed and epithelialized. 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 Neuro oriented x3, CN's II-XII intact bilaterally, moves all extremities, no focal motor deficits and no sensory deficits noted Sensorium / Orientation: awake, alert, oriented to person, oriented to place and oriented to time Speech: speech normal Psych Appearance: grossly normal and appropriate Attitude: calm Activity / Motor Behavior: appropriate eye contact Speech: normal speech Mood & Affect: euthymic mood Attention / Concentration: attention grossly intact Debridement Note Debridement Note Wound debrided: Ulceration of the right, distal anterolateral calf Laterality: Right Type of Debridement: Excisional debridement Anesthesia Used: 5% Lidocaine Gel Depth: Down to and including healthy tissue and in the subcutaneous layer Percentage of wound debrided: 100 Instrument Used: 3mm curette Tissue Removed: Bioburden Severity: Fat Layer Exposed Amount of bleeding with debridement: Mild Bleeding Controlled with: Compression and gauze Patient tolerated procedure: Patient tolerated procedure well Post-Debridement Measurements and Additional Note: Post-Debridement Measurements/Treatment - Nurse 1 - General Ulcer Assessment Start: 12/17/24 14:05 Freq: Status: Active Protocol: TALYA Activity Type Activity Date Activity User E-sign Co-sign Detail Recorded Client Recorded Date Recorded By Document 12/17/24 14:06 MT [id number] 12/17/24 14:40 MT Document 12/23/24 13:39 ML [id number] 12/23/24 13:43 ML Document 12/26/24 12:46 RB [id number] 12/26/24 12:48 RB Edit Result 12/26/24 12:46 RB (1) [id number] 12/26/24 13:19 RB Document 12/30/24 13:09 JF [id number] 12/30/24 13:20 JF (1) Blood Pressure (90/60-120/80) 142/70 H => 140/76 H Blood Pressure Mean 94 => 97 12/17/24 12/23/24 12/26/24 14:06 13:39 12:46 [facility] Today's Visit Information Type of service Nurse-only Follow-up Visit Nurse-only Visit (Physician/SALES PROCESS MANAGER Visit ) Arrival Mode Ambulatory Wheelchair Wheelchair Transfer Assistance None Manual Accompanied by daughter Patient Identification Verified (Name & Yes Yes Yes ) Patient Requires Transmission-Based No No Precautions Safety Precautions Fall Prevention Vital Signs Temperature (97.8 F-99.1 F) 98 F 96.4 F L 96.4 F L Temperature Source Temporal Temporal Temporal Pulse Rate (60-100) 76 79 79 Pulse Location Monitor Monitor Monitor Respiratory Rate (12-18) 18 14 18 Respiratory rate source Observation Observation Observation Oxygen Delivery Method Room Air Blood Pressure (90/60-120/80) 144/84 H 142/70 H 140/76 H Blood Pressure Mean 104 94 97 Source Monitor Monitor Monitor Position Sitting Sitting Semi-Fowlers Blood Pressure Location Right Arm Right Arm Left Arm History Since Last Visit- (Skip if this is Patient's initial visit) Have you changed medications since your No No last visit? Any new allergies or adverse reactions No No Had a fall/change in ADL's that may No No increase risk of falls Signs or symptoms of abuse and/or No No neglect since last visit Have you been in the hospital since your No No last visit? Has dressing in place as prescribed Yes Yes Yes Has compression in place as prescribed Yes N/A Yes Has offloadiing in place as prescribed Yes N/A N/A Experienced any changes in pain level or Yes No No management Left Footwear Regular Shoe Right Footwear Regular Shoe Pain Scale: 0-10 Numeric Is Patient Pain Free? Yes Yes Yes 12/30/24 13:09 WC - Today's Visit Information Type of service Follow-up Visit (Physician/SALES PROCESS MANAGER ) Arrival Mode Ambulatory, Wheelchair Transfer Assistance Accompanied by Patient Identification Verified (Name & Yes ) Patient Requires Transmission-Based No Precautions Safety Precautions Vital Signs Temperature (97.8 F-99.1 F) 96.3 F L Temperature Source Temporal Pulse Rate (60-100) 71 Pulse Location Monitor Respiratory Rate (12-18) 16 Respiratory rate source Observation Oxygen Delivery Method Blood Pressure (90/60-120/80) 150/89 H Blood Pressure Mean 109 Source Monitor Position Sitting Blood Pressure Location Right Arm History Since Last Visit- (Skip if this is Patient's initial visit) Have you changed medications since your Yes last visit? Any new allergies or adverse reactions No Had a fall/change in ADL's that may No increase risk of falls Signs or symptoms of abuse and/or No neglect since last visit Have you been in the hospital since your No last visit? Has dressing in place as prescribed Yes Has compression in place as prescribed Yes Has offloadiing in place as prescribed N/A Experienced any changes in pain level or No management Left Footwear Regular Shoe Right Footwear Regular Shoe Pain Scale: 0-10 Numeric Is Patient Pain Free? Yes - Nurse 1 - General Ulcer Measurement Start: 12/17/24 14:05 Freq: Status: Active Protocol: Activity Type Activity Date Activity User E-sign Co-sign Detail Recorded Client Recorded Date Recorded By Document 12/23/24 13:39 ML [id number] 12/23/24 13:43 ML Document 12/26/24 12:46 RB [id number] 12/26/24 12:48 RB Document 12/30/24 13:09 JF [id number] 12/30/24 13:20 JF 12/23/24 12/26/24 12/30/24 13:39 12:46 13:09 Wound Center Nurse 1 Left [place] -Current Size (cm) - Length 0.1 -Current Size (cm) - Width 0.1 -Current Size (cm) - Depth 0.1 -Total Square Cm 0.01 -Exudate Amt None Present -Granulation Amt None Present (0 %) -Slough/Fibrin No -Necrosis Amt None Present (0 %) -Texture (Lyric-wound Skin Appearance) Assessed -Moisture (Lyric-wound Skin Appearance) Assessed -Color (Lyric-wound Skin Appearance) Assessed -Temperature (Lyric-wound Skin No Abnormality Appearance) (Pt Warm) -Tenderness on Palpation (Lyric-wound No Skin Appearance) -Ulcer Cleansing Rinsed/ Irrigated with Saline -Foul Odor after Cleansing No -Anesthetic Used 5% Lidocaine Gel Right longoria -Combined with other wound No -Current Size (cm) - Length 0.1 0.1 -Current Size (cm) - Width 0.1 0.1 -Current Size (cm) - Depth 0.1 0.1 -Total Square Cm 0.01 0.01 -Photo Taken Yes -Epithelialization Large 67-100% -Tunneling No -Undermining/Tunneling No -Circular Undermining No -Exudate Amt None Present -Wound Margin Flat & Intact -Granulation Amt None Present (0 %) -Slough/Fibrin No No -Necrosis Amt None Present (0 %) -Structure Exposed N/A -Texture (Lyric-wound Skin Appearance) Assessed Localized Edema -Moisture (Lyric-wound Skin Appearance) Assessed Assessed,Dry/ Scaly -Color (Lyric-wound Skin Appearance) Assessed Assessed -Temperature (Lyric-wound Skin No Abnormality No Abnormality Appearance) (Pt Warm) (Pt Warm) -Tenderness on Palpation (Lyric-wound No No Skin Appearance) -Ulcer Cleansing Rinsed/ Soap and Water Irrigated with Saline -Foul Odor after Cleansing No No -Anesthetic Used 5% Lidocaine 5% Lidocaine Gel Gel Lower Limb Edema Present Yes Yes Right Calf (cm) 46 48 47.5 Right Ankle (cm) 32 28.6 29 Left Calf (cm) 43 48 48.2 Left Ankle (cm) 28 28 28.6 - Nurse 2 - General Ulcer CM Notes Start: 12/17/24 14:05 Freq: Status: Active Protocol: Activity Type Activity Date Activity User E-sign Co-sign Detail Recorded Client Recorded Date Recorded By Document 12/23/24 14:01 JF [id number] 12/23/24 14:04 JF Document 12/30/24 13:36 DS [id number] 12/30/24 13:38 DS 12/23/24 12/30/24 14:01 13:36 Wound Center Nurse 2 Left Long[place] -Correct Patient Yes -Correct Side, Site, Position No -Correct Procedure No -Procedure Performed No -Post Debridement (cm) - Length 0 -Post Debridement (cm) - Width 0 -Post Debridement (cm) - Depth 0 -Total Square (Post) (cm) 0 -Area of Debridement (cm) - Length 0 -Area of Debridement (cm) - Width 0 -Total Square (Area) (cm) 0 -Wound/Ulcer Outcome Healed- Epithelialized Right longoria -Time 14:02 13:36 -Correct Patient Yes Yes -Correct Side, Site, Position Yes Yes -Correct Procedure Yes Yes -Procedure Performed Yes Yes -Type of Procedure Debridement Debridement -Clinical Debridement Subcutaneous Subcutaneous -Tissue Removed Subcutaneous Subcutaneous -Post Debridement (cm) - Length 0.8 0.5 -Post Debridement (cm) - Width 1.2 0.5 -Post Debridement (cm) - Depth 0.1 0.1 -Total Square (Post) (cm) 0.96 0.25 -Area of Debridement (cm) - Length 0.8 0.5 -Area of Debridement (cm) - Width 1.2 0.5 -Total Square (Area) (cm) 0.96 0.25 -Tunneling No No -Undermining/Tunneling No No -Circular Undermining No No -Wound/Ulcer Outcome Not Healed Not Healed -Ulcer Cleansing Rinsed/ gauze Irrigated with Saline -Foul Odor after Cleansing No No -Bioengineered Tissue No No -Bleeding Controlled with Pressure Pressure -Treatment Response Procedure Procedure Tolerated Well Tolerated Well -Offloading No -Debridement - Subq, 1st 20sq cm Yes Yes Pain Scale: 0-10 Numeric Is Patient Pain Free? Yes Yes WC - Nurse 3 - General Ulcer D/C NN Start: 12/17/24 14:05 Freq: Status: Active Protocol: Activity Type Activity Date Activity User E-sign Co-sign Detail Recorded Client Recorded Date Recorded By Document 12/17/24 14:06 MT [id number] 12/17/24 14:40 MT Document 12/26/24 12:46 RB [id number] 12/26/24 12:48 RB Document 12/30/24 14:24 JF [id number] 12/30/24 14:25 JF 12/17/24 12/26/24 12/30/24 14:06 12:46 14:24 Pain Scale: 0-10 Numeric Is Patient Pain Free? Yes Yes Yes Wound Care Center Nurse 3 Left [place] -Ulcer Cleansing Soap and Water -Foul Odor after Cleansing No -Negative Pressure Wound Therapy N/A -Primary Dressing Covered/Secured with Dry Gauze,Dry Gauze & Roll Gauze -Other Covering hydrogel Right longoria -Ulcer Cleansing Soap and Water Rinsed/ Rinsed/ Irrigated with Irrigated with Saline Saline -Foul Odor after Cleansing No No -Negative Pressure Wound Therapy N/A -Primary Dressing Applied Aquacel AG 2x2 Aquacel AG 4x4, C Hydrogel -Other Dressing hydrogel -Primary Dressing Covered/Secured with Dry Gauze,Dry Dry Gauze Gauze & Roll Gauze -Aquacel AG 2x2 1 -Aquacel AG 4x4 1 -Hydrogel 0 BLE -Lotion applied to leg before Yes compression wrap -Multi-Layered Wrap Application Unna Boot - Multi-Layer Multi-Layer Bilateral Comp - Bilat ($ Comp - Bilat ($ ) ) -Unna- Bilat (Qty applied) 1 -Multi-Layer Compression Bilat (Qty 1 2 applied) Treatment Response Procedure Procedure Tolerated Well Tolerated Well WC - Visit Discharge Discharge Condition Stable Stable Ambulatory Status Ambulatory Wheelchair Ambulatory, Wheelchair Transportation Private Auto Private Auto Private Auto Accompanied by DAUGHTER daughter Medication Reconcilliation completed & No No Yes provided to patient/care provider Clinical Summary of Care Provided Yes Yes Yes Notes: pt understood wound dressing Charges/Coding Procedures Integumentary [id number]: [id number] Shima subq tissue 20 sq cm/< Assessment/Plan Assessment/Plan (1) Venous stasis ulcer: CODE(S): I83.009 - Varicose veins of unspecified lower extremity with ulcer of unspecified site; L97.909 - Non-pressure chronic ulcer of unspecified part of unspecified lower leg with unspecified severity QUALIFIERS: Venous stasis ulcer site: other part of lower leg Varicose vein presence: without varicose veins Laterality: right Non-pressure ulcer stage: with fat layer exposed Qualified Code(s): I87.2 - Venous insufficiency (chronic) (peripheral); L97.812 - Non-pressure chronic ulcer of other part of right lower leg with fat layer exposed (2) Venous stasis ulcer: CODE(S): I83.009 - Varicose veins of unspecified lower extremity with ulcer of unspecified site; L97.909 - Non-pressure chronic ulcer of unspecified part of unspecified lower leg with unspecified severity QUALIFIERS: Venous stasis ulcer site: calf Varicose vein presence: without varicose veins Laterality: left Non-pressure ulcer stage: with fat layer exposed Qualified Code(s): I87.2 - Venous insufficiency (chronic) (peripheral); L97.222 - Non-pressure chronic ulcer of left calf with fat layer exposed (3) Leg edema: CODE(S): R60.0 - Localized edema (4) Symptom of leg swelling: CODE(S): M79.89 - Other specified soft tissue disorders (5) Dependent edema: CODE(S): R60.9 - Edema, unspecified (6) Diabetes mellitus type 2 with complications, uncontrolled: (7) Peripheral artery disease: CODE(S): I73.9 - Peripheral vascular disease, unspecified (8) Impaired mobility: CODE(S): Z74.09 - Other reduced mobility (9) Stroke: CODE(S): I63.9 - Cerebral infarction, unspecified (10) h/o gallbladder removal: (11) History of shoulder surgery: CODE(S): Z98.890 - Other specified postprocedural states (12) Hypertension: CODE(S): I10 - Essential (primary) hypertension (13) Hyperlipidemia associated with type 2 diabetes mellitus: CODE(S): E11.69 - Type 2 diabetes mellitus with other specified complication; E78.5 - Hyperlipidemia, unspecified (14) Diabetic neuropathy: CODE(S): E11.40 - Type 2 diabetes mellitus with diabetic neuropathy, unspecified (15) Memory disturbance: CODE(S): R41.3 - Other amnesia (16) History of ovarian cancer: CODE(S): Z85.43 - Personal history of malignant neoplasm of ovary (17) History of hysterectomy: CODE(S): Z90.710 - Acquired absence of both cervix and uterus PLAN: Plan This is an 79-year-old female who presented with an ulceration on each of her lower extremities. The patient suffers from chronic swelling and edema in her lower extremities bilaterally. Within the last several months, she has developed an ulceration in both lower extremities. According to the patient, the ulcerations began as intact blisters, which subsequently ruptured, leaving ulcerations at each site. The patient claims to sleep on a flat mattress or couch at night. It appears as though she spends long hours each day sitting in idle fashion. She is not very active, requiring a cane or walker for ambulation. She denies a history of thrombophlebitis. She also claims that her appetite is poor. The patient is also noted to be diabetic. The patient's diabetes control appears to be poor. A lengthy discussion has been undertaken with the patient and her daughter regarding conservative treatment measures relative to the swelling and edema in the patient's lower extremities. The patient has been encouraged to continue sleeping on a flat surface at night. She has been encouraged to elevate her lower extremities during daytime hours, as much as possible. It has been explained that elevation should be to heart level, or higher. Prolonged idle sitting has been discouraged. Activity has been encouraged, but it is not likely the patient can enhance her level of activity to any significant degree. We are to continue the use of moistened Aquacel Ag topically to the ulceration of the right lower extremity, as well as collagen hydrogel. For compression, a 3M 2 layer compression wrap is to be applied bilaterally, in anticipation that this will be changed twice weekly. A noninvasive lower extremity arterial study has been performed, revealing minimal arterial occlusive disease at ankle level on the right. Mild arterial occlusive disease is noted at digital level bilaterally. Laboratory studies have also been obtained, and results have been reviewed. The patient has been encouraged to optimize her nutritional intake, and to use nutritional supplements, such as Glucerna, to assure adequate nutritional intake. A dietary consult has been offered, but was declined by the patient and her daughter. The patient has also been encouraged to optimize her diabetic control. Wound culture results from December 11, 2024, were positive for Staphylococcus aureus. In accordance with the sensitivity results, the patient was prescribed Bactrim double strength twice daily for a total of 10 days, which was completed. The patient's lower extremity circumference measurements have been forwarded to her DME provider, and CircAid Velcro compression garments have been received by the patient. She has been advised to bring these garments with her to her next appointment so that the donning technique can be demonstrated. The patient is to return for reevaluation in 1 week. Total time: 25 minutes
[2025-01-02 12:55] VITALS: BP 119/62; PULSE 71; RESP 15; TEMP 36.2
[2025-01-06 14:14] VITALS: BP 190/92; PULSE 75; RESP 18; TEMP 36.2
--- NOTE | 2025-01-07 09:05 | WC ---
PHOTO-RIGHT CAMILO 01/06/25
--- NOTE | 2025-01-08 14:20 | HP.PCM_ITS ---
History of Present Illness Date of Service: 01/06/25 Chief Complaint: Bilateral lower extremity ulcerations History of Wound: This is an 79-year-old female who presented with an ulceration in both lower extremities. According to the patient, the ulcerations had been present for a couple of months. It appears as though the ulcerations started as blisters, which subsequently ruptured, leaving a full-thickness ulceration at the site. The patient suffers from chronic swelling and edema in her lower extremities. The swelling and edema in her lower extremities occurs late in each day. She denies a history of thrombophlebitis. She claims to sleep on a flat mattress or couch at night. She is not active, and requires the use of a cane or walker for ambulation. The amount of sitting during daytime hours is judged to be significant. The patient indicated that compression to her lower extremities had been administered recently by means of Cresencio wraps. The patient lives with family members. She claims to prepare her own meals, though admits that her appetite is poor. 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 [facility] Medical History History of ovarian cancer Venous stasis ulcer Venous stasis ulcer Dependent edema Leg edema Symptom of leg swelling Memory disturbance Impaired mobility Peripheral artery disease Diabetic neuropathy Hyperlipidemia associated with type 2 diabetes mellitus Hypertension Diabetes mellitus type 2 with complications, uncontrolled Stroke Diabetes Home Medications ?Medication ?Instructions ?Recorded ?Last Taken ?Type aspirin 325 mg tablet 325 mg PO DAILY 04/04/18 History gabapentin 300 mg capsule 300 mg PO TID 04/04/18 Unkno wn History saxagliptin 5 mg tablet (Onglyza) 5 mg PO DAILY diabet es 04/04/18 Unknown History naproxen sodium 220 mg capsule 220 mg PO PRN PRN Pain 04/10/18 Unknown History (Aleve) omega-3 fatty acids-fish oil 340 1 ea PO BID 04/10/18 Unknown History mg-1,000 mg capsule (Fish Oil) hydrocodone-acetaminophen 5-325mg 1 - 2 ea (1 - 2 x 5- 325 mg) PO Q4H 04/24/18 Unknown Rx 5mg-325mg ([place]) PRN PRN Pain #60 tabs sulfamethoxazole 800 1 tab PO Q12H Wound Infectio n #20 12/15/24 Unknown Rx mg-trimethoprim 160 mg tablet tabs (Bactrim DS) Allergy/AdvReac Type Severity Reaction Status Date / Time No Known Allergies Allergy Verified 06/03/18 11:07 Family History Mother CVA (cerebral vascular accident) Father Heart disease Surgical History History of hysterectomy h/o gallbladder removal History of shoulder surgery Social History Smoking Status: Never smoker Physical Exam Const alert, oriented x3, no apparent distress and no limitations Constitutional Narrative: The patient is moderately obese, with a BMI of 39.0. General Appearance: cooperative, comfortable, well kempt and well developed Orientation / Consciousness: awake, oriented to person, oriented to place and oriented to time Exam Limitations: no limitations HEENT normocephalic and head/scalp atraumatic Head and Scalp: normal to inspection, normocephalic and atraumatic Face and Sinus: normal facial exam Nose: external nose normal External Ear: external ears normal Eyes EOMs intact bilaterally General Eye: normal appearance of both eyes Resp normal respiratory effort, normal air movement, no retractions and no use of accessory muscles Effort and Inspection: able to speak in complete sentences Extremity no calf tenderness General Extremity: Negative for clubbing or cyanosis Skin Wound Narrative: Moderate swelling and edema are noted in the patient's lower extremities bilaterally. On the right, an ulceration on the distal anterolateral calf is now healed and epithelialized. On the left, the ulceration previously noted on the left pretibial surface remains healed and epithelialized. 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 Mild, patchy scaly dermatitis is noted to the distal gaiter areas. Neuro oriented x3, CN's II-XII intact bilaterally, moves all extremities, no focal motor deficits and no sensory deficits noted Sensorium / Orientation: awake, alert, oriented to person, oriented to place and oriented to time Speech: speech normal Psych Appearance: grossly normal and appropriate Attitude: calm Activity / Motor Behavior: appropriate eye contact Speech: normal speech Mood & Affect: euthymic mood Attention / Concentration: attention grossly intact Debridement Note Debridement Note No debridement was completed: No debridement was completed today Post-Debridement Measurements and Additional Note: Post-Debridement Measurements/Treatment WC - Nurse 1 - General Ulcer Assessment Start: 12/17/24 14:05 Freq: Status: Active Protocol: TALYA Activity Type Activity Date Activity User E-sign Co-sign Detail Recorded Client Recorded Date Recorded By Document 12/17/24 14:06 MT [id number] 12/17/24 14:40 MT Document 12/23/24 13:39 ML [id number] 12/23/24 13:43 ML Document 12/26/24 12:46 RB [id number] 12/26/24 12:48 RB Edit Result 12/26/24 12:46 RB (1) [id number] 12/26/24 13:19 RB Document 12/30/24 13:09 JF [id number] 12/30/24 13:20 JF Document 01/02/25 12:55 ML [id number] 01/02/25 13:17 ML Document 01/06/25 14:14 RB [id number] 01/06/25 14:17 RB (1) Blood Pressure (90/60-120/80) 142/70 H => 140/76 H Blood Pressure Mean 94 => 97 12/17/24 12/23/24 12/26/24 14:06 13:39 12:46 WC - Today's Visit Information Type of service Nurse-only Follow-up Visit Nurse-only Visit (Physician/BANDOLEER PACKER Visit ) Arrival Mode Ambulatory Wheelchair Wheelchair Transfer Assistance None Manual Accompanied by daughter Patient Identification Verified (Name & Yes Yes Yes ) Patient Requires Transmission-Based No No Precautions Safety Precautions Fall Prevention Vital Signs Temperature (97.8 F-99.1 F) 98 F 96.4 F L 96.4 F L Temperature Source Temporal Temporal Temporal Pulse Rate (60-100) 76 79 79 Pulse Location Monitor Monitor Monitor Respiratory Rate (12-18) 18 14 18 Respiratory rate source Observation Observation Observation Oxygen Delivery Method Room Air Blood Pressure (90/60-120/80) 144/84 H 142/70 H 140/76 H Blood Pressure Mean 104 94 97 Source Monitor Monitor Monitor Position Sitting Sitting Semi-Fowlers Blood Pressure Location Right Arm Right Arm Left Arm History Since Last Visit- (Skip if this is Patient's initial visit) Have you changed medications since your No No last visit? Any new allergies or adverse reactions No No Had a fall/change in ADL's that may No No increase risk of falls Signs or symptoms of abuse and/or No No neglect since last visit Have you been in the hospital since your No No last visit? Has dressing in place as prescribed Yes Yes Yes Has compression in place as prescribed Yes N/A Yes Has offloadiing in place as prescribed Yes N/A N/A Experienced any changes in pain level or Yes No No management Left Footwear Regular Shoe Right Footwear Regular Shoe Pain Scale: 0-10 Numeric Is Patient Pain Free? Yes Yes Yes 12/30/24 01/02/25 01/06/25 13:09 12:55 14:14 - Today's Visit Information Type of service Follow-up Visit Nurse-only Follow-up Visit (Physician/BANDOLEER PACKER Visit (Physician/BANDOLEER PACKER ) ) Arrival Mode Ambulatory, Wheelchair Wheelchair Wheelchair Transfer Assistance None None Accompanied by Patient Identification Verified (Name & Yes Yes Yes ) Patient Requires Transmission-Based No No No Precautions Safety Precautions Vital Signs Temperature (97.8 F-99.1 F) 96.3 F L 97.1 F L 97.2 F L Temperature Source Temporal Temporal Temporal Pulse Rate (60-100) 71 71 75 Pulse Location Monitor Monitor Monitor Respiratory Rate (12-18) 16 15 18 Respiratory rate source Observation Observation Observation Oxygen Delivery Method Blood Pressure (90/60-120/80) 150/89 H 119/62 190/92 H Blood Pressure Mean 109 81 124 Source Monitor Monitor Monitor Position Sitting Sitting Semi-Fowlers Blood Pressure Location Right Arm Left Arm Right Arm History Since Last Visit- (Skip if this is Patient's initial visit) Have you changed medications since your Yes No No last visit? Any new allergies or adverse reactions No No No Had a fall/change in ADL's that may No No No increase risk of falls Signs or symptoms of abuse and/or No No No neglect since last visit Have you been in the hospital since your No No No last visit? Has dressing in place as prescribed Yes Yes Yes Has compression in place as prescribed Yes Yes No Has offloadiing in place as prescribed N/A Yes N/A Experienced any changes in pain level or No No management Left Footwear Regular Shoe Regular Shoe Right Footwear Regular Shoe Regular Shoe Pain Scale: 0-10 Numeric Is Patient Pain Free? Yes Yes Yes - Nurse 1 - General Ulcer Measurement Start: 12/17/24 14:05 Freq: Status: Active Protocol: Activity Type Activity Date Activity User E-sign Co-sign Detail Recorded Client Recorded Date Recorded By Document 12/23/24 13:39 ML [id number] 12/23/24 13:43 ML Document 12/26/24 12:46 RB [id number] 12/26/24 12:48 RB Document 12/30/24 13:09 JF [id number] 12/30/24 13:20 JF Document 01/06/25 14:14 RB [id number] 01/06/25 14:17 RB 12/23/24 12/26/24 12/30/24 13:39 12:46 13:09 Wound Center Nurse 1 Left [place] -Current Size (cm) - Length 0.1 -Current Size (cm) - Width 0.1 -Current Size (cm) - Depth 0.1 -Total Square Cm 0.01 -Exudate Amt None Present -Granulation Amt None Present (0 %) -Slough/Fibrin No -Necrosis Amt None Present (0 %) -Texture (Lyric-wound Skin Appearance) Assessed -Moisture (Lyric-wound Skin Appearance) Assessed -Color (Lyric-wound Skin Appearance) Assessed -Temperature (Lyric-wound Skin No Abnormality Appearance) (Pt Warm) -Tenderness on Palpation (Lyric-wound No Skin Appearance) -Ulcer Cleansing Rinsed/ Irrigated with Saline -Foul Odor after Cleansing No -Anesthetic Used 5% Lidocaine Gel Right longoria -Combined with other wound No -Current Size (cm) - Length 0.1 0.1 -Current Size (cm) - Width 0.1 0.1 -Current Size (cm) - Depth 0.1 0.1 -Total Square Cm 0.01 0.01 -Photo Taken Yes -Epithelialization Large 67-100% -Tunneling No -Undermining/Tunneling No -Circular Undermining No -Exudate Amt None Present -Wound Margin Flat & Intact -Granulation Amt None Present (0 %) -Granulation Quality -Slough/Fibrin No No -Necrosis Amt None Present (0 %) -Necrotic Tissue Type -Structure Exposed N/A -Texture (Lyric-wound Skin Appearance) Assessed Localized Edema -Moisture (Lyric-wound Skin Appearance) Assessed Assessed,Dry/ Scaly -Color (Lyric-wound Skin Appearance) Assessed Assessed -Temperature (Lyric-wound Skin No Abnormality No Abnormality Appearance) (Pt Warm) (Pt Warm) -Tenderness on Palpation (Lyric-wound No No Skin Appearance) -Ulcer Cleansing Rinsed/ Soap and Water Irrigated with Saline -Foul Odor after Cleansing No No -Anesthetic Used 5% Lidocaine 5% Lidocaine Gel Gel Lower Limb Edema Present Yes Yes Right Calf (cm) 46 48 47.5 Right Ankle (cm) 32 28.6 29 Left Calf (cm) 43 48 48.2 Left Ankle (cm) 28 28 28.6 01/06/25 14:14 Wound Center Nurse 1 Left [place] -Current Size (cm) - Length -Current Size (cm) - Width -Current Size (cm) - Depth -Total Square Cm -Exudate Amt -Granulation Amt -Slough/Fibrin -Necrosis Amt -Texture (Lyric-wound Skin Appearance) -Moisture (Lyric-wound Skin Appearance) -Color (Lyric-wound Skin Appearance) -Temperature (Lyric-wound Skin Appearance) -Tenderness on Palpation (Lyric-wound Skin Appearance) -Ulcer Cleansing -Foul Odor after Cleansing -Anesthetic Used Right longoria -Combined with other wound No -Current Size (cm) - Length 0.1 -Current Size (cm) - Width 0.1 -Current Size (cm) - Depth 0.1 -Total Square Cm 0.01 -Photo Taken Yes -Epithelialization -Tunneling No -Undermining/Tunneling No -Circular Undermining No -Exudate Amt None Present -Wound Margin Distinct, Outline Attached -Granulation Amt Large (67-100%) -Granulation Quality [place] -Slough/Fibrin Yes -Necrosis Amt Small (1-33%) -Necrotic Tissue Type Adherent Slough -Structure Exposed N/A -Texture (Lyric-wound Skin Appearance) Assessed -Moisture (Lyric-wound Skin Appearance) Assessed -Color (Lyric-wound Skin Appearance) Assessed -Temperature (Lyric-wound Skin No Abnormality Appearance) (Pt Warm) -Tenderness on Palpation (Lyric-wound No Skin Appearance) -Ulcer Cleansing Rinsed/ Irrigated with Saline -Foul Odor after Cleansing No -Anesthetic Used 5% Lidocaine Gel Lower Limb Edema Present Yes Right Calf (cm) 48.5 Right Ankle (cm) 30 Left Calf (cm) 48 Left Ankle (cm) 29 WC - Nurse 2 - General Ulcer CM Notes Start: 12/17/24 14:05 Freq: Status: Active Protocol: Activity Type Activity Date Activity User E-sign Co-sign Detail Recorded Client Recorded Date Recorded By Document 12/23/24 14:01 JF [id number] 12/23/24 14:04 JF Document 12/30/24 13:36 DS [id number] 12/30/24 13:38 DS Document 01/06/25 14:37 DS [id number] 01/06/25 14:38 DS 12/23/24 12/30/24 01/06/25 14:01 13:36 14:37 Wound Center Nurse 2 Left [place] -Correct Patient Yes -Correct Side, Site, Position No -Correct Procedure No -Procedure Performed No -Post Debridement (cm) - Length 0 -Post Debridement (cm) - Width 0 -Post Debridement (cm) - Depth 0 -Total Square (Post) (cm) 0 -Area of Debridement (cm) - Length 0 -Area of Debridement (cm) - Width 0 -Total Square (Area) (cm) 0 -Wound/Ulcer Outcome Healed- Epithelialized Right longoria -Time 14:02 13:36 14:37 -Correct Patient Yes Yes Yes -Correct Side, Site, Position Yes Yes Yes -Correct Procedure Yes Yes -Procedure Performed Yes Yes No -Type of Procedure Debridement Debridement -Clinical Debridement Subcutaneous Subcutaneous -Tissue Removed Subcutaneous Subcutaneous -Post Debridement (cm) - Length 0.8 0.5 -Post Debridement (cm) - Width 1.2 0.5 -Post Debridement (cm) - Depth 0.1 0.1 -Total Square (Post) (cm) 0.96 0.25 -Area of Debridement (cm) - Length 0.8 0.5 -Area of Debridement (cm) - Width 1.2 0.5 -Total Square (Area) (cm) 0.96 0.25 -Tunneling No No -Undermining/Tunneling No No -Circular Undermining No No -Wound/Ulcer Outcome Not Healed Not Healed Healed- Epithelialized -Ulcer Cleansing Rinsed/ gauze Irrigated with Saline -Foul Odor after Cleansing No No -Bioengineered Tissue No No -Bleeding Controlled with Pressure Pressure -Treatment Response Procedure Procedure Tolerated Well Tolerated Well -Offloading No -Debridement - Subq, 1st 20sq cm Yes Yes Pain Scale: 0-10 Numeric Is Patient Pain Free? Yes Yes Yes WC - Nurse 3 - General Ulcer D/C NN Start: 12/17/24 14:05 Freq: Status: Active Protocol: Activity Type Activity Date Activity User E-sign Co-sign Detail Recorded Client Recorded Date Recorded By Document 12/17/24 14:06 MT [id number] 12/17/24 14:40 MT Document 12/26/24 12:46 RB [id number] 12/26/24 12:48 RB Document 12/30/24 14:24 JF [id number] 12/30/24 14:25 JF Edit Result 12/30/24 14:24 JF (1) [id number] 01/01/25 15:35 DS Document 01/02/25 12:55 ML [id number] 01/02/25 13:17 ML Document 01/06/25 14:40 DS [id number] 01/06/25 16:12 DS (1) BLE - Multi-Layer Compression Bilat (Qty 2 => 1 applied) 12/17/24 12/26/24 12/30/24 14:06 12:46 14:24 Pain Scale: 0-10 Numeric Is Patient Pain Free? Yes Yes Yes Wound Care Center Nurse 3 Left [place] -Ulcer Cleansing Soap and Water -Foul Odor after Cleansing No -Negative Pressure Wound Therapy N/A -Primary Dressing Covered/Secured with Dry Gauze,Dry Gauze & Roll Gauze -Other Covering hydrogel Right longoria -Ulcer Cleansing Soap and Water Rinsed/ Rinsed/ Irrigated with Irrigated with Saline Saline -Foul Odor after Cleansing No No -Negative Pressure Wound Therapy N/A -Primary Dressing Applied Aquacel AG 2x2 Aquacel AG 4x4, C Hydrogel -Other Dressing hydrogel -Primary Dressing Covered/Secured with Dry Gauze,Dry Dry Gauze Gauze & Roll Gauze -Aquacel AG 2x2 1 -Aquacel AG 4x4 1 -Hydrogel 0 -Wound Comment(s) BLE -Lotion applied to leg before Yes compression wrap -Multi-Layered Wrap Application Unna Boot - Multi-Layer Multi-Layer Bilateral Comp - Bilat ($ Comp - Bilat ($ ) ) -Unna- Bilat (Qty applied) 1 -Multi-Layer Compression Bilat (Qty 1 1 applied) Treatment Response Procedure Procedure Tolerated Well Tolerated Well WC - Visit Discharge Discharge Condition Stable Stable Ambulatory Status Ambulatory Wheelchair Ambulatory, Wheelchair Transportation Private Auto Private Auto Private Auto Accompanied by DAUGHTER daughter Medication Reconcilliation completed & No No Yes provided to patient/care provider Clinical Summary of Care Provided Yes Yes Yes Notes: pt understood wound dressing 01/02/25 01/06/25 12:55 14:40 Pain Scale: 0-10 Numeric Is Patient Pain Free? Yes Yes Wound Care Center Nurse 3 Left [place] -Ulcer Cleansing -Foul Odor after Cleansing -Negative Pressure Wound Therapy -Primary Dressing Covered/Secured with -Other Covering Right longoria -Ulcer Cleansing -Foul Odor after Cleansing -Negative Pressure Wound Therapy -Primary Dressing Applied -Other Dressing -Primary Dressing Covered/Secured with Dry Gauze, Secured with Tape -Aquacel AG 2x2 -Aquacel AG 4x4 -Hydrogel -Wound Comment(s) circaides placed pt healed/dc BLE -Lotion applied to leg before compression wrap -Multi-Layered Wrap Application Multi-Layer Comp - Bilat ($ ) -Unna- Bilat (Qty applied) -Multi-Layer Compression Bilat (Qty 1 applied) Treatment Response WC - Visit Discharge Discharge Condition Stable Ambulatory Status Ambulatory, Wheelchair Transportation Private Auto Accompanied by Medication Reconcilliation completed & provided to patient/care provider Clinical Summary of Care Provided Notes: Charges/Coding Visit Charges Office Visits / Consults: 14169 OV L3 Est 20min Assessment/Plan Assessment/Plan (1) Venous stasis ulcer: CODE(S): I83.009 - Varicose veins of unspecified lower extremity with ulcer of unspecified site; L97.909 - Non-pressure chronic ulcer of unspecified part of unspecified lower leg with unspecified severity QUALIFIERS: Venous stasis ulcer site: other part of lower leg Varicose vein presence: without varicose veins Laterality: right Non-pressure ulcer stage: with fat layer exposed Qualified Code(s): I87.2 - Venous insufficiency (chronic) (peripheral); L97.812 - Non-pressure chronic ulcer of other part of right lower leg with fat layer exposed (2) Venous stasis ulcer: CODE(S): I83.009 - Varicose veins of unspecified lower extremity with ulcer of unspecified site; L97.909 - Non-pressure chronic ulcer of unspecified part of unspecified lower leg with unspecified severity QUALIFIERS: Venous stasis ulcer site: calf Varicose vein presence: without varicose veins Laterality: left Non-pressure ulcer stage: with fat layer exposed Qualified Code(s): I87.2 - Venous insufficiency (chronic) (peripheral); L97.222 - Non-pressure chronic ulcer of left calf with fat layer exposed (3) Leg edema: CODE(S): R60.0 - Localized edema (4) Symptom of leg swelling: CODE(S): M79.89 - Other specified soft tissue disorders (5) Dependent edema: CODE(S): R60.9 - Edema, unspecified (6) Diabetes mellitus type 2 with complications, uncontrolled: (7) Peripheral artery disease: CODE(S): I73.9 - Peripheral vascular disease, unspecified (8) Impaired mobility: CODE(S): Z74.09 - Other reduced mobility (9) Stroke: CODE(S): I63.9 - Cerebral infarction, unspecified (10) h/o gallbladder removal: (11) History of shoulder surgery: CODE(S): Z98.890 - Other specified postprocedural states (12) Hypertension: CODE(S): I10 - Essential (primary) hypertension (13) Hyperlipidemia associated with type 2 diabetes mellitus: CODE(S): E11.69 - Type 2 diabetes mellitus with other specified complication; E78.5 - Hyperlipidemia, unspecified (14) Diabetic neuropathy: CODE(S): E11.40 - Type 2 diabetes mellitus with diabetic neuropathy, unspecified (15) Memory disturbance: CODE(S): R41.3 - Other amnesia (16) History of ovarian cancer: CODE(S): Z85.43 - Personal history of malignant neoplasm of ovary (17) History of hysterectomy: CODE(S): Z90.710 - Acquired absence of both cervix and uterus PLAN: Plan This is an 79-year-old female who presented with an ulceration on each of her lower extremities. The patient suffers from chronic swelling and edema in her lower extremities bilaterally. Within the several months prior to presentation, she had developed an ulceration in both lower extremities. According to the patient, the ulcerations began as intact blisters, which subsequently ruptured, leaving ulcerations at each site. The patient claims to sleep on a flat m attress or couch at night. It appears as though she spends long hours each day sitting in idle fashion. She is not very active, requiring a cane or walker for ambulation. She denies a history of thrombophlebitis. She also claims that her appetite is poor. The patient is also noted to be diabetic. The patient's diabetes control appears to be poor. A lengthy discussion has been undertaken with the patient and her daughter regarding conservative treatment measures relative to the swelling and edema in the patient's lower extremities. The patient has been encouraged to continue sleeping on a flat surface at night. She has been encouraged to elevate her lower extremities during daytime hours, as much as possible. It has been explained that elevation should be to heart level, or higher. Prolonged idle sitting has been discouraged. Activity has been encouraged, but it is not likely the patient can enhance her level of activity to any significant degree. At this time, the ulcerations in both lower extremities are healed and epithelialized. Therefore, the patient is to be discharged. She is to pad and protect the recently healed ulcerations. She is to continue the measures which have been implemented on a long-term basis. She has one CircAid Velcro compression garment which she is to continue using on a daily basis to the right lower extremity. This is to be donned upon arising from bed each day, and worn until bedtime. She is to continue using graduated compression stockings to the left lower extremity, either 1 pair of 20 to 30 mmHg compression stockings, or a dual pair of 10 to 15 mmHg compression. The patient is to follow-up henceforth on an as needed basis. Total time: 24 minutes
== END 2025-01-16 23:59 | disposition home or self-care (01) ==
LOC: WC 14:00
PROVIDERS: PCP Nurse Practitioner Primary Care; Visit Provider Surgery
DX: I83.012 Varicose veins of right lower extremity with ulcer of calf (principal); L97.222 Non-pressure chronic ulcer of left calf with fat layer exposed; L97.212 Non-pressure chronic ulcer of right calf with fat layer exposed; I83.022 Varicose veins of left lower extremity with ulcer of calf; E11.59 Type 2 diabetes mellitus with other circulatory complications; E11.69 Type 2 diabetes mellitus with other specified complication; E11.40 Type 2 diabetes mellitus with diabetic neuropathy, unspecified; E11.51 Type 2 diabetes mellitus with diabetic peripheral angiopathy without gangrene; E78.5 Hyperlipidemia, unspecified; I10 Essential (primary) hypertension; Z79.82 Long term (current) use of aspirin; R60.0 Localized edema
CPT/HCPCS: 11042; 29580; 29581; 99213; G0463